=== PATIENT | female | born 1970 | race Caucasian/White ===

== ENCOUNTER 2024-05-26 09:53 | Day surgery (SDC) | payer BC, SELFPAY ==
[2024-05-23 11:49] VITALS: BMI 37.5
--- NOTE | 2024-05-26 11:28 | EXP.HP ---
History of Present Illness *Admission Date: 05/26/24 *Reason for visit:: Dysphagia *History of present illness: Mrs. Del Angel is a 53-year-old female who is here for dysphagia. The examination is deemed medically necessary for upper endoscopy. The patient has been seen, interviewed and examined prior to the procedure by both myself and the anesthesia provider. [facility] Disclaimer: The information contained in this section may have been updated after the patient was seen, as this information can be updated by other users. Medical History Rheumatoid arthritis Diabetes Amputation toe Sleep apnea History of COVID-19 History of gastroesophageal reflux (GERD) Surgical History History of ankle surgery History of appendectomy History of hysterectomy History of cholecystectomy Family History Other Cancer Colon cancer Diabetes Enlarged heart Heart disease Social History Smoking Status: Former smoker alcohol intake: never substance use type: denies use current occupational status: unemployed Travel in the last 8 weeks: None Review of Systems Review of Systems Review of systems (narrative): Negative *Cardiovascular Comments: Negative *Gastrointestinal Comments: Negative *Genitourinary Comments: Negative *Musculoskeletal Comments: Negative *Neurologic Comments: Negative Meds Home Medications and Allergies Home Medications ?Medication ?Instructions ?Recorded ?Confirmed ?Type duloxetine 60 mg capsule,delayed 60 mg PO DAILY 04/28/24 05/26/24 History release flash glucose sensor (FreeStyle #1 ea 04/28/24 05/23/24 History Benedict 2 Sensor kit) insulin glargine 100 unit/mL (3 80 unit SQ DAILY 04/28/24 05/26/24 History mL) subcutaneous pen (Lantus Solostar U-100 Insulin) insulin lispro 100 unit/mL 0 sliding scale dose SQ TID 04/28/24 05/26/24 History subcutaneous pen (Humalog KwikPen (U-100) Insulin) metformin 1,000 mg tablet 1,000 mg PO BID 04/28/24 05/26/24 History pregabalin 300 mg capsule 300 mg PO BID 04/28/24 05/26/24 History semaglutide 1 mg/dose (4 mg/3 mL) 2 mg SQ WEEKLY 04/28/24 05/26/24 History subcutaneous pen injector (Ozempic) levofloxacin 500 mg tablet 500 mg PO DAILY 05/23/24 05/26/24 History promethazine-DM 6.25 mg-15 mg/5 mL 5 ml PO DAILY PRN Cough 05/23/24 05/26/24 History oral syrup New Prescriptions to Start Prescriptions: Allergies Allergy/AdvReac Type Severity Reaction Status Date / Time hydrocodone Allergy Mild Rash Verified 05/26/24 11:41 Sulfa (Sulfonamide Allergy Mild Difficulty Verified 05/26/24 11:41 Antibiotics) Swallowing Exam Data for Last 24 hours I & O for Last 24 hours: Intake & Output 05/23/24 05/24/24 05/25/24 05/26/24 23:59 23:59 23:59 23:59 Weight 212 lb 0.015 oz *Routine HEENT Exam Head: Present normocephalic Eye: Present EOMI and PERRL ENT: Present mucous membranes moist *Routine Neck Exam Neck: Present supple *Routine Respiratory Exam Respiratory: Present CTA bilaterally *Routine Cardiovascular Exam Cardiovascular: Present RRR *Routine Abdominal Exam Abdominal: Present soft and normoactive bowel sounds; Absent tenderness *Routine Rectal Exam Rectal:: deferred *Routine Genitalia Exam Genitalia:: deferred *Routine Extremities Exam Extremities: Absent cyanosis, clubbing or edema *Routine Skin Exam Skin: Present warm; Absent rash *Routine Neurological Exam Neurological: Present alert and oriented X3 Assessment and Plan *Assessment and plan (1) Dysphagia: Status: Acute Category: Medical Code(s): R13.10 - Dysphagia, unspecified (2) Family history of stomach cancer: Status: Acute Category: Medical Code(s): Z80.0 - Family history of malignant neoplasm of digestive organs Plan A/P: 1. Dysphagia is the preprocedural diagnosis. The patient will be anesthetized/sedated using MAC sedation. The patient has been seen and examined. Cardiac and lung assessment prior to the examination is stable. Proceed with planned upper endoscopy
[2024-05-26 11:43] VITALS: BP 187/85; PULSE 102; RESP 18; TEMP 36.2; O2SAT 95
[2024-05-26] MEDS: LACTATED RINGERS 1000ML 1,000 ML 25 ML IV (11:49)
[2024-05-26 11:53] LABS: POC Glucose,Bedside 105 (70-110)
--- NOTE | 2024-05-26 12:05 | P.PNANES_ITS ---
[facility] Disclaimer: The information contained in this section may have been updated after the patient was seen, as this information can be updated by other users. Medical History Rheumatoid arthritis Diabetes Amputation toe Sleep apnea History of COVID-19 History of gastroesophageal reflux (GERD) Surgical History History of ankle surgery History of appendectomy History of hysterectomy History of cholecystectomy Family History Other Cancer Colon cancer Diabetes Enlarged heart Heart disease Social History Smoking Status: Former smoker alcohol intake: never substance use type: denies use current occupational status: unemployed Travel in the last 8 weeks: None [facility] Anesthesia Checklist Patient Identification Patient Identification: Verbal (Name & ) Structural Data Admitted From: Home Planned Operative Procedure/s: egd Consent for Planned Operative Procedure(s) Verified: Yes NPO Status Verified Time NPO: 00:00 Airway Assessment Mallampati Score:: Class II C-Spine Mobility Assessed: Yes TMJ Mobility Assessed: Yes Dentition: Edentulous Neurological Assessment Level of Consciousness: Awake, Alert and Appropriate Anesthesia Plan Anesthesia Risk discussed: Yes Anesthesia Plan: Verified ASA Class: II Anesthesia Type: MAC
[2024-05-26 12:08] VITALS: O2SAT 95
--- NOTE | 2024-05-26 12:23 | HMH.PROCNOTE ---
[facility] Procedure Note Date: 05/26/24 Time: 12:33 Procedure Note:: Upper Endoscopy Procedure Report: Esophagogastroduodenoscopy with cold biopsies and TTS balloon dilation Endoscopost: Jose Daniel Mcdonough II, MD Referring Physician: Hernán Ruiz MD Date of Procedure: May 26, 2024 Equipment: Olympus GIF 190 standard upper endoscope Sedation: MAC sedation Indications: Mrs. Del Angel is a 53-year-old female who is here for diagnostic upper endoscopy secondary to dysphagia and swallowing difficulty. This occurred after her hospitalization at [facility] 4 months ago. She was intubated en route to the hospital. The patient did have painful swallowing initially. Now she has trouble primarily with solid foods that get hung up. She will have to regurgitate food at times. She is losing some weight. She reports no heartburn or reflux. She has minor belching. She reports no bloating or abdominal pain. This is her first upper endoscopy. She is on Ozempic. Her mother had gastric cancer diagnosed in her 60s. Her grandmother was diagnosed with colon cancer. She has a nephew with Crohn's disease. Procedure: Prior to the procedure, a history and physical exam was performed, and patient's medications and allergies were reviewed. The risks, benefits and alternatives of the sedation and procedure were discussed with the patient. All questions were answered and informed consent was obtained. The patient was brought to the procedure room. Patient identification and proposed procedure were verified by the physician and the nurse. The patient was placed in a left lateral decubitus position and the scope was passed under direct vision. Throughout the procedure, the patient's blood pressure, pulse, and oxygen saturations were monitored continuously. The upper GI endoscopy was accomplished without difficulty. The patient tolerated the procedure well. Findings: The scope was passed directly into the upper esophagus and advanced to the third portion of the duodenum. The post bulbar duodenum and duodenal bulb were normal with normal mucosa and conniventes. The ampulla was normal in appearance. The scope was withdrawn through a normal bulb and pylorus into the stomach. There was some linear reactive gastropathy of the antrum. There was mild chronic gastritis of the body and fundus. Biopsies were taken from the antrum and lesser curvature to rule out H. pylori. Upon retroflexion there was a small 1 to 2 cm hiatal hernia. The scope was then withdrawn into the esophagus. There was a distal esophageal ring/Schatzki's ring. There was a serrated Z-line and biopsies were taken at the GE junction. There was no evidence of reflux esophagitis or Rowe's. There were tertiary contractions and evidence of moderate esophageal dysmotility. The entire esophagus was dilated to 60 [place]/20 mm with a TTS hydrostatic balloon. There was some shattering of the Schatzki's ring distally. The remainder of the esophageal mucosa was normal. Impression: 1. Schatzki's ring status post dilation to 20 mm 2. Nonerosive GERD with mild to moderate esophageal dysmotility and small 1 to 2 cm hiatal hernia 3. Mild linear reactive gastropathy and mild chronic gastritis Plan: I will follow-up the biopsies. The patient should have clinical improvement with dilation. I would recommend PPI/omeprazole therapy for 3 months.
[2024-05-26 12:38] VITALS: BP 167/101; PULSE 96; RESP 18; TEMP 36.9; O2SAT 96
[2024-05-26 12:48] VITALS: BP 157/82; PULSE 93; RESP 18; O2SAT 92
[2024-05-26 12:58] VITALS: BP 159/91; PULSE 92; RESP 18; O2SAT 92
[2024-05-26 13:30] VITALS: BP 158/85; PULSE 93; RESP 18; O2SAT 94
== END 2024-05-26 13:30 | disposition home or self-care (01) ==
PROVIDERS: PCP Family Medicine; Visit Provider Internal Medicine Gastroenterology
PROC: 0DJ08ZZ Inspection of Upper Intestinal Tract, Via Natural or Artificial Opening Endoscopic (ICD-10-PCS; CPT 43235; principal; 2024-05-26 12:00)
DX: R13.10 Dysphagia, unspecified (principal); Z80.0 Family history of malignant neoplasm of digestive organs; K21.9 Gastro-esophageal reflux disease without esophagitis; K22.2 Esophageal obstruction; K44.9 Diaphragmatic hernia without obstruction or gangrene; K22.4 Dyskinesia of esophagus; K31.9 Disease of stomach and duodenum, unspecified; K29.70 Gastritis, unspecified, without bleeding
CPT/HCPCS: 43239; 43249; 82962; C1726; J7120

== ENCOUNTER 2024-07-04 14:32 | Outpatient (CLI) | payer BC, SELFPAY ==
[2024-07-04 15:21] LABS: Basophils # 0.1 K/mm3 (0-0.2); Eosinophils # 0.3 K/mm3 (0.0-0.4); Eosinophils % 4.3 % (0.1-12.0); Hemoglobin 10.8 g/dL (12.2-16.2); Lymphocytes # 2.3 K/mm3 (0.7-4.5); Lymphocytes % 28.5 % (10-50); Mean Corpuscular HGB Conc 30.9 g/dL (31.8-35.4); Mean Corpuscular Hemoglobin 23.7 pg (27.0-31.2); Mean Corpuscular Volume 76.8 fl (81-99); Mean Platelet Volume 9.9 fl (7.4-10.4); Monocytes # 0.6 K/mm3 (0.1-1.0); Monocytes % 7.1 % (1.7-9.3); Neutrophils # 4.7 K/mm3 (1.8-7.8); Neutrophils % 58.8 % (37.0-80.0); Platelet Count 237 K/mm3 (142-424); Red Blood Count 4.56 M/mm3 (4.20-5.40); Red Cell Distribution Width 24.5 % (11.5-17.5); White Blood Count 7.9 K/mm3 (4.8-10.8)
[2024-07-04 15:31] LABS: Albumin Level 3.7 g/dl (3.5-5.0); Chloride 98 mmol/L (98-107); Potassium 3.4 mmoL/L (3.5-5.1); Sodium 136 mmol/L (136-145)
[2024-07-04 15:33] LABS: Ammonia 92 umol/L (9-30)
[2024-07-04 15:34] LABS: Alanine Aminotransferase 24 U/L (12-78); Albumin/Globulin Ratio 1.2 (1.1-1.8); Alkaline Phosphatase 108 U/L (38-126); Anion Gap 10.4 mEq/L (5-15); Aspartate Amino Transferase 33 U/L (14-36); Bilirubin,Total 0.8 mg/dl (0.2-1.3); Blood Urea Nitrogen 19 mg/dl (7-17); Carbon Dioxide 31 mmol/L (22.0-30.0); Estimated Glomerular Filt Rate 88 ml/min (>60); GFR (African American) 106 ML/MIN (>60); Glucose 223 mg/dl (74-100); Iron 92 ug/dL (37-170); Total Protein,Serum 6.7 g/dl (6.3-8.2)
[2024-07-04 15:36] LABS: INR 0.96 (0.9-1.1); Prothrombin Time 10.8 seconds (10.1-12.5)
[2024-07-04 15:43] LABS: Total Iron Binding Capacity 371 ug/dL (265-497)
[2024-07-04 16:09] LABS: Ferritin 37.6 ng/ml (11.1-264)
[2024-07-05 04:02] LABS: AFP, Tumor Marker 4.6 ng/mL (0.0-9.2)
[2024-07-05 05:08] LABS: Immunoglobulin A, Qn 479 mg/dL (87-352); Immunoglobulin G, Qn 1117 mg/dL (586-1602); Immunoglobulin M, Qn 199 mg/dL (26-217)
[2024-07-05 06:10] LABS: HBsAg Screen Negative (Negative); HCV Ab Non Reactive (Non Reactive); Hep A Ab, IGM Negative (Negative); Hep B Core Ab, IgM Negative (Negative)
[2024-07-05 14:33] LABS: Actin (Smooth Muscle) Antibody 5 Units (0-19); Deamidated Gliadin Abs, IgA 7 units (0-19); Deamidated Gliadin Abs, IgG 1 units (0-19); Mitochondrial (M2) Antibody <20.0 Units (0.0-20.0); Tissue Transglutaminase IgA Ab <2 U/mL (0-3); Tissue Transglutaminase IgG Ab <2 U/mL (0-5)
[2024-07-07 15:09] LABS: Liver-Kidney Microsomal Ab <1.0 Units (0.0-20.0)
[2024-07-07 16:10] LABS: Anti-Centromere B Antibodies <0.2 AI (0.0-0.9); Anti-DNA (DS) Ab Qn <1 IU/mL (0-9); Anti-Jo-1 <0.2 AI (0.0-0.9); Anti-Smith Antibody <0.2 AI (0.0-0.9); Antichromatin Antibodies <0.2 AI (0.0-0.9); Antiscleroderma-70 Antibodies <0.2 AI (0.0-0.9); RNP Antibodies <0.2 AI (0.0-0.9); Sjogren's Anti-SS-A <0.2 AI (0.0-0.9); Sjogren's Anti-SS-B <0.2 AI (0.0-0.9)
[2024-07-07 17:34] LABS: Angiotensin Converting Enzyme 55 U/L (14-82)
[2024-07-08 03:53] LABS: ALT (SGPT) P5P 15 IU/L (0-40); AST (SGOT) P5P 22 IU/L (0-40); Alpha 2-Macroglobulins, Qn 172 mg/dL (110-276); Apolipoprotein A-1 177 mg/dL (116-209); Bilirubin, Total 0.5 mg/dL (0.0-1.2); Cholesterol, Total 166 mg/dL (100-199); Fibrosis Score 0.09 (0.00-0.21); GGT 18 IU/L (0-60); Glucose 221 mg/dL (70-99); Haptoglobin 129 mg/dL (33-346); NASH Score 0.41 (0.00-0.25); Steatosis Score 0.64 (0.00-0.40); Triglycerides 173 mg/dL (0-149)
[2024-07-08 06:11] LABS: Endomysial IgA Antibody Negative (Negative)
[2024-07-09 07:09] LABS: Reticulin IgA Antibody Negative titer (Neg:<1:2.5)
== END 2024-07-04 23:59 | disposition home or self-care (01) ==
LOC: LAB 14:33
PROVIDERS: PCP Family Medicine; Visit Provider Nurse Practitioner Family
DX: K74.60 Unspecified cirrhosis of liver (principal)
CPT/HCPCS: 80053; 82103; 82104; 82105; 82140; 82164; 82728; 82784; 83516; 83540; 83550; 85025; 85610; 86225; 86235; 86255; 86256; 86376

== ENCOUNTER 2024-07-20 14:50 | Outpatient (CLI) | payer BC, SELFPAY ==
[2024-07-20 15:31] LABS: Occult Blood,Stool Positive (Negative)
[2024-07-20 15:32] LABS: Occult Blood,Stool Positive (Negative)
[2024-07-20 15:32] LABS: Occult Blood,Stool Positive (Negative)
== END 2024-07-20 23:59 | disposition home or self-care (01) ==
LOC: LAB 14:51
PROVIDERS: PCP Family Medicine; Visit Provider Nurse Practitioner Family
DX: D50.9 Iron deficiency anemia, unspecified (principal)
CPT/HCPCS: 82272; G0328

== ENCOUNTER 2024-07-30 08:26 | Day surgery (SDC) | payer BC, SELFPAY ==
[2024-07-28 14:10] VITALS: BMI 36.1
[2024-07-30 09:00] VITALS: BP 151/77; PULSE 91; RESP 16; TEMP 36.6; O2SAT 94
[2024-07-30] MEDS: LACTATED RINGERS 1000ML 1,000 ML 50 ML IV (09:00)
[2024-07-30 09:16] LABS: POC Glucose,Bedside 152 (70-110)
--- NOTE | 2024-07-30 09:39 | EXP.ANES.CKL ---
[facility] Disclaimer: The information contained in this section may have been updated after the patient was seen, as this information can be updated by other users. Medical History Rheumatoid arthritis Diabetes Amputation toe History of COVID-19 History of gastroesophageal reflux (GERD) Surgical History History of ankle surgery History of appendectomy History of hysterectomy History of cholecystectomy Family History Other Cancer Colon cancer Diabetes Enlarged heart Heart disease Social History (Updated 07/30/24 @ 08:56 by Willow Shafer RN) Smoking Status: Former smoker alcohol intake: never substance use type: denies use current occupational status: unemployed Travel in the last 8 weeks: None caffeine: Yes Have you lived/traveled outside [place] in past 30 days?: No Contact w/someone who lives/traveled outside US past 30 days?: No Exposure to someone with infectious disease in past 14 days?: No Do you have a fever (greater than 100.4 F or 38 C)?: No Have you tested positive for COVID-19: No Exposed to someone with COVID-19 in past 14 days?: No Do you have a sore throat?: No Do you have a cough?: No Do you have any weakness?: No Are you experiencing any nausea/vomitting?: No Do you have any diarrhea?: No Are you experiencing any unusual bleeding?: No Do you have any muscle aches/pain?: No Do you have any abdominal pain?: No Are you experiencing loss of taste or smell?: No [facility] Anesthesia Checklist Patient Identification Patient Identification: Arm Band Structural Data Admitted From: Home Planned Operative Procedure/s: EGD/Colonoscopy Consent for Planned Operative Procedure(s) Verified: Yes Verified Documents: Surgical Consent and History and Physical NPO Status Verified Time NPO: 00:00 Additional verifications Anesthesia Reactions: No Airway Assessment Mallampati Score:: Class II C-Spine Mobility Assessed: Yes TMJ Mobility Assessed: Yes Dentition: Edentulous Neurological Assessment Level of Consciousness: Awake, Alert and Appropriate Anesthesia Plan Anesthesia Risk discussed: Yes Anesthesia Plan: Verified ASA Class: III Anesthesia Type: MAC
--- NOTE | 2024-07-30 10:38 | P.HP_ITS ---
History of Present Illness *Admission Date: 07/30/24 *Reason for visit:: Dysphagia and iron deficiency anemia and cirrhosis *History of present illness: Mrs. Del Angel is a 53-year-old female with iron deficiency anemia, dysphagia and cirrhosis who is here for diagnostic upper endoscopy and colonoscopy. The examination is deemed medically necessary for EGD and colonoscopy. The patient has been seen, interviewed and examined prior to the procedure by both myself and the anesthesia provider. [facility] Disclaimer: The information contained in this section may have been updated after the patient was seen, as this information can be updated by other users. Medical History Rheumatoid arthritis Diabetes Amputation toe History of COVID-19 History of gastroesophageal reflux (GERD) Surgical History History of ankle surgery History of appendectomy History of hysterectomy History of cholecystectomy Family History Other Cancer Colon cancer Diabetes Enlarged heart Heart disease Social History (Updated 07/30/24 @ 08:56 by Willow Shafer RN) Smoking Status: Former smoker alcohol intake: never substance use type: denies use current occupational status: unemployed Travel in the last 8 weeks: None caffeine: Yes Have you lived/traveled outside [place] in past 30 days?: No Contact w/someone who lives/traveled outside [place] past 30 days?: No Exposure to someone with infectious disease in past 14 days?: No Do you have a fever (greater than 100.4 F or 38 C)?: No Have you tested positive for COVID-19: No Exposed to someone with COVID-19 in past 14 days?: No Do you have a sore throat?: No Do you have a cough?: No Do you have any weakness?: No Are you experiencing any nausea/vomitting?: No Do you have any diarrhea?: No Are you experiencing any unusual bleeding?: No Do you have any muscle aches/pain?: No Do you have any abdominal pain?: No Are you experiencing loss of taste or smell?: No Review of Systems Review of Systems Review of systems (narrative): Negative *Cardiovascular Comments: Negative *Gastrointestinal Comments: Negative *Genitourinary Comments: Negative *Musculoskeletal Comments: Negative *Neurologic Comments: Negative Meds Home Medications and Allergies Home Medications ?Medication ?Instructions ?Recorded ?Confirmed ?Type flash glucose sensor (FreeStyle #1 ea 04/28/24 07/01/24 History Benedict 2 Sensor kit) insulin glargine 100 unit/mL (3 80 unit SQ DAILY 04/28/24 07/30/24 History mL) subcutaneous pen (Lantus Solostar U-100 Insulin) insulin lispro 100 unit/mL 0 sliding scale dose SQ TID 04/28/24 07/30/24 History subcutaneous pen (Humalog KwikPen (U-100) Insulin) metformin 1,000 mg tablet 1,000 mg PO BID 04/28/24 07/30/24 History pregabalin 300 mg capsule 300 mg PO BID 04/28/24 07/30/24 History omeprazole 40 mg capsule,delayed 40 mg PO DAILY #30 caps 05/26/24 07/30/24 Rx release duloxetine 60 mg capsule,delayed 60 mg PO BID 07/01/24 07/30/24 History release (Cymbalta) ferrous sulfate 325 mg (65 mg 325 mg PO DAILY 07/01/24 07/30/24 History iron) tablet furosemide 40 mg tablet 40 mg PO DAILY 07/01/24 07/30/24 History losartan 25 mg tablet 25 mg PO DAILY 07/01/24 07/30/24 History ondansetron 8 mg disintegrating 8 mg PO Q8H nausea and vomiting 07/01/24 07/01/24 Rx tablet #12 tabs semaglutide 2 mg/dose (8 mg/3 mL) 2 mg SQ QWEEK 07/01/24 07/30/24 History subcutaneous pen injector (Ozempic) New Prescriptions to Start Prescriptions: Allergies Allergy/AdvReac Type Severity Reaction Status Date / Time hydrocodone Allergy Mild Rash Verified 07/30/24 08:57 Sulfa (Sulfonamide Allergy Mild Difficulty Verified 07/30/24 08:57 Antibiotics) Swallowing Exam Data for Last 24 hours Vital signs and Labs for Last 24 Hours: Temp Pulse Resp BP Pulse Ox O2 Del Method 97.8 F 91 H 16 151/77 H 94 L Room Air 07/30/24 09:00 07/30/24 09:00 07/30/24 09:00 07/30/24 09:00 07/30/24 09:00 07/30/24 09:00 Laboratory Results - last 24 hr 07/30/24 09:07: POC Glucose 152 H I & O for Last 24 hours: Intake & Output 07/27/24 07/28/24 07/29/24 07/30/24 23:59 23:59 23:59 23:59 Weight 204 lb *Routine HEENT Exam Head: Present normocephalic Eye: Present EOMI and PERRL ENT: Present mucous membranes moist *Routine Neck Exam Neck: Present supple *Routine Respiratory Exam Respiratory: Present CTA bilaterally *Routine Cardiovascular Exam Cardiovascular: Present RRR *Routine Abdominal Exam Abdominal: Present soft and normoactive bowel sounds; Absent tenderness *Routine Rectal Exam Rectal:: deferred *Routine Genitalia Exam Genitalia:: deferred *Routine Extremities Exam Extremities: Absent cyanosis, clubbing or edema *Routine Skin Exam Skin: Present warm; Absent rash *Routine Neurological Exam Neurological: Present alert and oriented X3 Assessment and Plan *Assessment and plan (1) Dysphagia: Status: Acute Category: Medical Code(s): R13.10 - Dysphagia, unspecified (2) GERD (gastroesophageal reflux disease): Status: Acute Category: Medical Code(s): K21.9 - Gastro-esophageal reflux disease without esophagitis (3) Family history of stomach cancer: Status: Acute Category: Medical Code(s): Z80.0 - Family history of malignant neoplasm of digestive organs (4) Schatzki's ring: Status: Acute Category: Medical Code(s): K22.2 - Esophageal obstruction (5) Iron deficiency anemia: Status: Acute Category: Medical Code(s): D50.9 - Iron deficiency anemia, unspecified (6) Cirrhosis of liver: Status: Acute Category: Medical Code(s): K74.60 - Unspecified cirrhosis of liver Plan A/P: 1. Dysphagia with history of cirrhosis and iron deficiency anemia is the preprocedural diagnosis. EGD to rule out portal hypertension and colonoscopy for diagnostic evaluation of iron deficiency. The patient will be anesthetized/sedated using MAC sedation. The patient has been seen and examined. Cardiac and lung assessment prior to the examination is stable. Proceed with planned upper endoscopy and colonoscopy
[2024-07-30 10:44] VITALS: O2SAT 99
--- NOTE | 2024-07-30 10:51 | P.PCN_ITS ---
[facility] Procedure Note Date: 07/30/24 Time: 11:01 Procedure Note:: Upper Endoscopy Procedure Report: Esophagogastroduodenoscopy with APC ablation and cold biopsies Endoscopost: oJse Daniel Mcdonough II, MD Referring Physician: Hernán Ruiz MD Date of Procedure: July 30, 2024 Equipment: Olympus GIF 190 standard upper endoscope Sedation: MAC sedation Indications: Mrs. Del Angel is a 53-year-old female with iron deficiency anemia. Her hemoglobin was 8.8 in January 2024 and has dropped to 6.9 in 4 months. Her CAT scan has shown cirrhosis with evidence of portal hypertension and varices in the upper abdomen. The patient has received 3 units of PRBCs and an iron infusion. The patient reports no abdominal pain, melena, hematochezia or bright red blood per rectum. She is not on any anticoagulation and rarely uses NSAIDs. She did have an EGD with me in May 2024 and had dilation of a Schatzki's ring. Her dysphagia is resolved. Procedure: Prior to the procedure, a history and physical exam was performed, and patient's medications and allergies were reviewed. The risks, benefits and alternatives of the sedation and procedure were discussed with the patient. All questions were answered and informed consent was obtained. The patient was brought to the procedure room. Patient identification and proposed procedure were verified by the physician and the nurse. The patient was placed in a left lateral decubitus position and the scope was passed under direct vision. Throughout the procedure, the patient's blood pressure, pulse, and oxygen saturations were monitored continuously. The upper GI endoscopy was accomplished without difficulty. The patient tolerated the procedure well. Findings: The scope was passed directly into the upper esophagus and advanced to the third portion of the duodenum. There were 3 duodenal angiodysplasia/AVMs identified and all were ablated/coagulated using APC ablation. The remainder of the post bulbar duodenum and duodenal bulb were normal with normal mucosa and conniventes. The scope was withdrawn through a normal duodenal bulb and pylorus into the stomach. There was bile gastropathy in the antrum. There was also an angiodysplasia/AVM in the body of the stomach with some minor oozing and coffee- ground heme. This was also ablated/coagulated using APC. There was evidence of proximal gastric atrophy/atrophic gastritis and biopsies were taken from the fundus. Upon retroflexion there was a very small sliding hiatal hernia. There were no gastric or fundic varices. There was no evidence of portal gastropathy or GAVE. The scope was then withdrawn into the esophagus. There was an insignificant Schatzki's ring distally. There were no esophageal varices. The remainder of the esophageal mucosa was normal. Impression: 1. Gastric and duodenal AVMs/angiodysplasia status post APC ablation 2. Proximal gastric atrophy/atrophic gastritis 3. Antral reactive gastropathy Plan: There was clearly no evidence of portal hypertension, portal gastropathy or varices. I do feel that her chronic GI blood loss is from the angiodysplasias. I will discuss with patient and family and follow-up the biopsies. Chronic atrophic gastritis is associated with iron deficiency as well.
--- NOTE | 2024-07-30 11:05 | P.PCN_ITS ---
[facility] Procedure Note Date: 07/30/24 Time: 11:20 Procedure Note:: Colonoscopy Procedure Report: Colonoscopy with cold snare polypectomy Endoscopist: Jose Daniel Mcdonough II, MD Referring physician: Hernán Ruiz MD Date of Procedure: July 30, 2024 Equipment: Olympus 190 variable stiffness pediatric colonoscope Sedation: MAC sedation Indication: Mrs. Del Angel is a 53-year-old female with iron deficiency anemia. Her hemoglobin was 8.8 in January 2024 and has dropped to 6.9 in 4 months. Her CAT scan has shown cirrhosis with evidence of portal hypertension and varices in the upper abdomen. The patient has received 3 units of PRBCs and an iron infusion. The patient reports no abdominal pain, melena, hematochezia or bright red blood per rectum. She is not on any anticoagulation and rarely uses NSAIDs. The patient reports no abdominal pain or weight loss. Her grandmother was diag nosed with colon cancer in her 70s. The patient's last colonoscopy was 5 years ago in [place] ([facility]). Procedure: Prior to the procedure, a history and physical exam was performed, and patient's medications and allergies were reviewed. The risks, benefits and alternatives of the sedation and procedure were discussed with the patient. All questions were answered and informed consent was obtained. The patient was brought to the procedure room. Patient identification and proposed procedure were verified by the physician and the nurse. The patient was placed in a left lateral decubitus position and the scope was passed under direct vision. Throughout the procedure, the patient's blood pressure, pulse, and oxygen saturations were monitored continuously. The colonoscopy was accomplished without difficulty. The patient tolerated the procedure well. Findings: On digital rectal examination there was normal rectal tone. There were no external hemorrhoids. The colonoscope was introduced through the anal canal to the rectum and advanced to the cecum. The ileocecal valve and appendiceal orifice were identified. The scope was advanced a short distance into the ileum which appeared grossly normal. The scope was then withdrawn into the colon. There were 3 polyps (cecum x 1 (5 mm), transverse x 1 (5 mm) and descending x 1 (9 to 10 mm)). These were all removed via cold snare polypectomy. The cecum, ascending, transverse, descending, sigmoid and rectum were grossly normal. There were no mucosal abnormalities identified. Upon retroflexion within the rectum there were grade 1-2 internal hemorrhoids.The preparation was good throughout with [place] Preparation Score of 8 out of 9. The cecal time was 14 minutes. Impression: 1. Colonic polyps x 3 (ranging in size from 5 to 10 mm) Plan: There was no source for iron deficiency or chronic GI blood loss from the upper digestive tract. 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 I will follow-up the polyp histology and recommend repeat surveillance colonoscopy again in 5 years. Angiodysplasias which are also called AVMs (arteriovenous malformations) can remain clinically silent or cause gastrointestinal bleeding. Patients who bleed typically present with occult not overt gastrointestinal blood loss. Angiodysplasias are aberrant blood vessels which are more frequently found in the gastrointestinal tract, where they are probably more common than anywhere else in the body. The vast majority are acquired later in life. The reasons for the distortion of vascular structures observed as we get older are poorly understood. Angiodysplasias are composed of ectatic, dilated, thin-walled blood vessels and the most prominent feature in angiodysplasias is the presence of dilated, tortuous submucosal veins. A proposed theory is that angiodysplasias develop due to intermittent, recurrent low-grade obstruction of submucosal veins. Over years, the obstruction results in dilatation and tortuosity of the draining areas (ie, submucosal vessels, venules, and superficial capillaries). Angiodysplasia may be found during evaluation of gastrointestinal (GI) bleeding or it may be discovered incidentally during an endoscopic evaluation being performed for other reasons. If bleeding occurs, the bleeding tends be recurrent and chronic. However, marked acute bleeding causing orthostasis or hypotension can rarely occur. Angiodysplasia of the stomach or duodenum has been incriminated as the cause of blood loss in 4 to 7 percent of patients with gastrointestinal bleeding . Such patients may present with either occult bleeding or overt bleeding. In addition, angiodysplasia may be detected as an incidental finding. I recommend treating angiodysplasia found during upper endoscopy or colonoscopy in patients with occult bleeding, even if the lesions are not bleeding at the time of the endoscopy. If needed, patients should also be started on iron replacement therapy. A variety of endoscopic treatments can be used to treat angiodysplasia, with approaches employing cautery being the most widely used. Argon plasma coagulation (APC) uses high frequency energy transmitted to tissue by ionized gas. This technique has been used for a variety of bleeding lesions, including angiodysplasia. APC is safe and is the most common and most successful method used to treat angiodysplasia.
[2024-07-30 11:24] VITALS: BP 138/86; PULSE 93; RESP 16; TEMP 36.1; O2SAT 94
[2024-07-30 11:34] VITALS: BP 119/81; PULSE 84; RESP 16; O2SAT 100
[2024-07-30 11:44] VITALS: BP 138/83; PULSE 85; RESP 16; O2SAT 92
[2024-07-30 11:54] VITALS: BP 143/84; PULSE 82; RESP 16; O2SAT 93
== END 2024-07-30 12:16 | disposition home or self-care (01) ==
PROVIDERS: PCP Family Medicine; Visit Provider Internal Medicine Gastroenterology
PROC: 0DJ08ZZ Inspection of Upper Intestinal Tract, Via Natural or Artificial Opening Endoscopic (ICD-10-PCS; CPT 45378; principal; 2024-07-30 10:00)
DX: R13.10 Dysphagia, unspecified (principal); K21.9 Gastro-esophageal reflux disease without esophagitis; Z80.0 Family history of malignant neoplasm of digestive organs; K22.2 Esophageal obstruction; D50.9 Iron deficiency anemia, unspecified; K74.60 Unspecified cirrhosis of liver; K44.9 Diaphragmatic hernia without obstruction or gangrene; K31.819 Angiodysplasia of stomach and duodenum without bleeding; K31.9 Disease of stomach and duodenum, unspecified; K29.40 Chronic atrophic gastritis without bleeding; K63.5 Polyp of colon; K64.8 Other hemorrhoids; E11.9 Type 2 diabetes mellitus without complications; Z79.4 Long term (current) use of insulin; Z79.85 Long-term (current) use of injectable non-insulin antidiabetic drugs
CPT/HCPCS: 43239; 43270; 45385; 82962; C2618; J7120

== ENCOUNTER 2024-08-06 07:28 | Outpatient (CLI) | payer BC, SELFPAY ==
[2024-08-06] VITALS (14 sets, daily range): BP systolic 128–188; BP diastolic 61–167; PULSE 78–86; RESP 18; TEMP 36.9; O2SAT 92–98; BMI 37.0
[2024-08-06 08:09] LABS: POC Glucose,Bedside 85 (70-110)
[2024-08-06 08:35] LABS: INR 0.94 (0.9-1.1); Prothrombin Time 10.4 seconds (9.2-12.1)
[2024-08-06 08:41] LABS: Basophils # 0.1 K/mm3 (0-0.2); Basophils % 0.8 % (0.1-2.0); Eosinophils # 0.3 K/mm3 (0.0-0.4); Eosinophils % 3.6 % (0.1-12.0); Hematocrit 34.5 % (37.0-47.0); Lymphocytes # 3.1 K/mm3 (0.7-4.5); Lymphocytes % 34.6 % (10-50); Mean Corpuscular HGB Conc 31.9 g/dL (31.8-35.4); Mean Corpuscular Hemoglobin 25.9 pg (27.0-31.2); Mean Corpuscular Volume 81.4 fl (81-99); Monocytes # 0.6 K/mm3 (0.1-1.0); Monocytes % 6.9 % (1.7-9.3); Neutrophils # 4.8 K/mm3 (1.8-7.8); Neutrophils % 53.8 % (37.0-80.0); Platelet Count 193 K/mm3 (142-424); Red Blood Count 4.24 M/mm3 (4.20-5.40); Red Cell Distribution Width 22.9 % (11.5-17.5); White Blood Count 8.9 K/mm3 (4.8-10.8)
--- NOTE | 2024-08-06 09:15 | CT_ITS ---
FINAL REPORT CLINICAL HISTORY: cirrhosis on imaging, normal LFTs LIVER BIOPSY, FINDINGS: CT guided liver biopsy. HISTORY: Cirrhosis. Attending radiologist: Dr. Smith. Physician Miter Grinder Operator: Fabian Upton PA-C PROCEDURE: After informed consent was obtained and a time-out was performed, the patient was prepped and draped in usual sterile fashion over the liver. Utilizing local anesthesia and sterile technique with a 18-gauge core system, access to liver was obtained under direct CT guidance. A total of 2 separate 18-gauge core biopsies were obtained under direct CT guidance. Post biopsy films demonstrate no evidence of acute complication. The patient received moderate conscious sedation. The patient tolerated procedure well and left the department in good condition. PROCEDURAL SEDATION: 2 mg of IV Versed and 50 mcg of Fentanyl were administered. Continuous vital sign monitoring was used. An RN was present during the sedation process. Overall sedation time was 15 minutes. IMPRESSION: Status post CT guided biopsy of liver without immediate complication. Films reviewed, interpreted and dictated by Dr. Smith. Transcribed by Fabian Upton PA-C. Reviewed, Interpreted and Dictated by Carlton Smith MD Transcribed by YAN Bardales Authenticated and [facility]
[2024-08-06] MEDS: OXYCODONE 5MG W/APAP 325MG TABLET 1 EACH PO (09:45)
== END 2024-08-06 12:45 | disposition home or self-care (01) ==
PROVIDERS: PCP Family Medicine; Visit Provider Nurse Practitioner Family
DX: K74.60 Unspecified cirrhosis of liver (principal)
CPT/HCPCS: 47000; 77012; 82962; 85025; 85610; J2250; J3010

== ENCOUNTER 2024-08-17 08:22 | Emergency (ER) | payer BC, SELFPAY ==
[2024-08-17 08:23] VITALS: BP 194/101; PULSE 90; RESP 18; TEMP 36.7; O2SAT 97; BMI 35.7
[2024-08-17 08:29] VITALS: BP 194/101; PULSE 90; O2SAT 95
[2024-08-17 09:00] VITALS: BP 170/106; PULSE 89; O2SAT 94
--- NOTE | 2024-08-17 09:04 | ED_ITS ---
Discharge Plan Disposition Patient Disposition: Home, Self-Care Prescriptions Prescriptions: No Action metformin 1,000 mg tablet 1,000 mg PO BID Patient Comments: TAKE 1 TABLET BY MOUTH TWICE A DAY WITH MEALS pregabalin [Lyrica] 300 mg capsule 300 mg PO BID Patient Comments: TAKE 1 CAPSULE BY MOUTH TWICE A DAY (DME) FreeStyle Benedict 2 Sensor Kit See Rx Instructions .ROUTE .MEDSUPPLY Qty: 1 Patient Comments: USE DIRECTED AND CHANGE EVERY 14 DAYS Rx Instructions: As directed insulin glargine [Lantus Solostar U-100 Insulin] 100 unit/mL (3 mL) insulin pen 50 unit SQ DAILY Patient Comments: INJECT 80 UNITS UNDER THE SKIN DIRECTED EVERY EVENING . MAX 100 UNITS/DAY insulin lispro [Humalog KwikPen Insulin] 100 unit/mL insulin pen 0 sliding scale dose SQ TID Patient Comments: INJECT 20 UNITS UNDER THE SKIN DIRECTED 3 TIMES A DAY . MAX 100 UNITS/DAY Rx Instructions: DOSE PER SLIDING SCALE ferrous sulfate 325 mg (65 mg iron) tablet 325 mg PO DAILY Patient Comments: TAKE 1 TABLET BY MOUTH EVERY DAY WITH BREAKFAST Rx Instructions: TAKE 1 TABLET BY MOUTH EVERY DAY WITH BREAKFAST Ozempic 2 mg/dose (8 mg/3 mL) pen injector 4 mg SQ QWEEK Patient Comments: INJECT 2 MG UNDER THE SKIN INTO THE APPROPRIATE AREA DIRECTED ONCE WEEKLY (TOO SOON ON INS) Rx Instructions: INJECT 2 MG UNDER THE SKIN INTO THE APPROPRIATE AREA DIRECTED ONCE WEEKLY (TOO SOON ON INS) furosemide 40 mg tablet 40 mg PO DAILY PRN (Reason: Edema) Patient Comments: TAKE 1 TABLET BY MOUTH DAILY NEEDED (SHORTNESS OF BREATH, WEIGHT GAIN). Rx Instructions: TAKE 1 TABLET BY MOUTH DAILY NEEDED (SHORTNESS OF BREATH, WEIGHT GAIN). losartan 25 mg tablet 50 mg PO DAILY Patient Comments: TAKE 1 TABLET BY MOUTH EVERY DAY Rx Instructions: TAKE 1 TABLET BY MOUTH EVERY DAY omeprazole 40 mg capsule,delayed release(DR/EC) 40 mg PO DAILY Qty: 30 3RF Rx Instructions: Please take 1 capsule p.o. daily Referrals Follow up/Referrals: Hernán Ruiz [Primary Care Provider] - See instructions Activity Restrictions/Add. Instructions Additional Instructions/Restrictions: No evidence of an acute neurovascular emergency. Please keep a blood pressure log as discussed return with any sudden worsening of your headaches or neurologic complaints or other concerns. After your blood pressure log is taken for several days please follow-up with your primary care doctor to discuss chronic management to your blood pressure. As discussed according to the [employer] most recent blood pressure guidelines for patients over the age of 50 our goal blood pressure of 150/90. Clinical Impressions Clinical Impression: Headache, Hypertension Print Language Print Language: [place] Discharge ED Provider: Marty Cabrera General Adult HPI General Chief complaint: Headache Stated complaint: headache, high bp Time Seen by Provider: 08/17/24 08:49 Mode of Arrival: Ambulatory Source of Information: Patient Limitations: No Limitations Description of Symptoms (Recalled from ER Triage Doc. by RN): pt reports headache for two days. has taken tylenol. History of Present Illness HPI narrative: Patient is a 53-year-old female presenting today with a headache. Has been slowly and progressively worsening over the last several days no sudden component to this. She has no neurologic symptoms associated with this no numbness weakness tingling changes in vision or coordination that are acute. No changes in mental status her is at the bedside who agrees with that. Patient denies any fevers or neck stiffness. Patient has attributed significant hypertension to this and recent took her blood pressure was 200 systolic at home. She is on blood pressure medications. Past medical history includes hypertension diabetes and rheumatoid arthritis. She has not recently been on steroids etc. Related Data Home Medications ?Medication ?Instructions ?Recorded ?Confirmed flash glucose sensor (FreeStyle #1 ea 04/28/24 08/17/24 Benedict 2 Sensor kit) insulin glargine 100 unit/mL (3 50 unit SQ DAILY 04/28/24 08/17/24 mL) subcutaneous pen (Lantus Solostar U-100 Insulin) insulin lispro 100 unit/mL 0 sliding scale dose SQ TID 04/28/24 08/17/24 subcutaneous pen (Humalog KwikPen (U-100) Insulin) metformin 1,000 mg tablet 1,000 mg PO BID 04/28/24 08/17/24 pregabalin 300 mg capsule (Lyrica) 300 mg PO BID 04/28/24 08/17/24 ferrous sulfate 325 mg (65 mg 325 mg PO DAILY 07/01/24 08/17/24 iron) tablet furosemide 40 mg tablet 40 mg PO DAILY PRN Edema 07/01/24 08/17/24 losartan 25 mg tablet 50 mg PO DAILY 07/01/24 08/17/24 semaglutide 2 mg/dose (8 mg/3 mL) 4 mg SQ QWEEK 07/01/24 08/17/24 subcutaneous pen injector (Ozempic) Previous Rx's ?Medication ?Instructions ?Recorded omeprazole 40 mg capsule,delayed 40 mg PO DAILY #30 caps 05/26/24 release Allergies Allergy/AdvReac Type Severity Reaction Status Date / Time hydrocodone Allergy Mild Rash Verified 08/06/24 07:49 Sulfa (Sulfonamide Allergy Mild Difficulty Verified 08/06/24 07:49 Antibiotics) [facility] Disclaimer: The information contained in this section may have been updated after the patient was seen, as this information can be updated by other users. Medical History (Updated 08/17/24 @ 09:06 by Marty Cabrera MD) Rheumatoid arthritis Diabetes Amputation toe History of COVID-19 History of gastroesophageal reflux (GERD) Surgical History History of ankle surgery History of appendectomy History of hysterectomy History of cholecystectomy Family History Other Cancer Colon cancer Diabetes Enlarged heart Heart disease Social History Smoking Status: Current every day smoker alcohol intake: never substance use type: denies use current occupational status: unemployed Travel in the last 8 weeks: None caffeine: Yes Have you lived/traveled outside [place] in past 30 days?: No Contact w/someone who lives/traveled outside US past 30 days?: No Exposure to someone with infectious disease in past 14 days?: No Do you have a fever (greater than 100.4 F or 38 C)?: No Have you tested positive for COVID-19: No Exposed to someone with COVID-19 in past 14 days?: No Do you have a sore throat?: No Do you have a cough?: No Do you have any weakness?: No Do you have any diarrhea?: No Are you experiencing any unusual bleeding?: No Do you have any muscle aches/pain?: No Do you have any abdominal pain?: No Are you experiencing loss of taste or smell?: No Other Medical History Have you received the Flu Vaccine for this season: No Have you received the Pneumonia Vaccine: No ROS Obtained: Yes All systems reviewed & no additional complaints except as documented Physical Exam General General appearance: alert Respiratory Respiratory exam: Present normal lung sounds bilaterally Cardiovascular Cardiovascular exam: Present regular rate Neurological Exam Neurological exam: Present alert, oriented X3, CN II-XII intact and normal gait; Absent motor sensory deficit Medical Decision Making Medical Records Screening: Per USPSTF and CDC recommendations, given the prevalence of disease in our region, it is our hospital?s policy to screen for HIV and viral Hepatitis for all patients aged 18 and over and those with ongoing risk factors. Marcus Inquiry Pt receiving controlled substance: No Vital Signs: 08/17/24 08:23 08/17/24 08:29 08/17/24 09:00 Temperature 98.1 F Temperature Source Oral Pulse Rate 90 89 Pulse Rate [Right] 90 Respiratory Rate 18 Blood Pressure 194/101 H 170/106 H Blood Pressure [Right Arm] 194/101 H Blood Pressure Mean [Right Arm] 132 02 Sat by Pulse Oximetry 97 95 94 L Oxygen Delivery Method Room Air Room Air Room Air 08/17/24 09:30 Temperature Temperature Source Pulse Rate 83 Pulse Rate [Right] Respiratory Rate Blood Pressure 182/103 H Blood Pressure [Right Arm] Blood Pressure Mean [Right Arm] 02 Sat by Pulse Oximetry 96 Oxygen Delivery Method Room Air Lab Data Lab Results 08/17/24 08:44: HIV Ag/Ab Combo Qual Negative Orders (Tests/Meds): ED MEDICATIONS Generic Name Dose Route Start Last Admin Trade Name Freq PRN Reason Stop Dose Admin Lactated Ringer's 1,000 mls @ 999 mls/hr 08/17/24 09:15 08/17/24 09:29 Lactated Ringer's 1000 Ml Bag IV 08/17/24 10:15 999 mls/hr .Q1H1M NELLA Administration Discontinued Medications Generic Name Dose Route Start Last Admin Trade Name Freq PRN Reason Stop Dose Admin Diphenhydramine HCl 25 mg 08/17/24 09:01 08/17/24 09:30 Diphenhydramine 50mg/Ml Vial IV 08/17/24 09:02 25 mg ONCE ONE Administration Ketorolac Tromethamine 15 mg 08/17/24 09:01 08/17/24 09:30 Ketorolac 30mg/Ml Vial IV 08/17/24 09:02 15 mg ONCE ONE Administration Prochlorperazine Edisylate 10 mg 08/17/24 09:01 08/17/24 09:30 Prochlorperazine 10mg/2ml Vial IV 08/17/24 09:02 10 mg ONCE ONE Administration ORDERS Category Date Time Status HIV Combo Stat Lab 08/17/24 08:44 Completed Medical Decision Narrative: Well-appearing 53-year-old female with a GCS of 15 and nonfocal normal neurologic exam with some hypertension presents today with a headache that has been ongoing for 2 days and slowly worsening. This is not consistent with a subarachnoid hemorrhage or meningitis. Patient has no focal neurologic deficits no indication currently for any CT imaging or MRI imaging. Will treat her headache with a migraine cocktail and reassess. She has no evidence of clinical endorgan damage from hypertension standpoint as well. I suspect that her blood pressure will spontaneously resolve once we get her headache under control. Reassessment 1007 patient feeling much better GCS of 15 normal neurologic exam. Blood pressure has mildly improved. Again no evidence clinically of endorgan damage. She will follow-up with her primary care doctor and keep a blood pressure log. Patient was discharged in stable and improved condition. Critical Care Critical Care Time Critical Care Time: No
[2024-08-17] MEDS: LACTATED RINGERS 1000ML 1,000 ML 999 ML IV (09:29)
[2024-08-17 09:30] VITALS: BP 182/103; PULSE 83; O2SAT 96
[2024-08-17] MEDS: diphenhydrAMINE 50MG/ML VIAL 25 MG IV (09:30)
[2024-08-17] MEDS: KETOROLAC 30MG/ML VIAL 15 MG IV (09:30)
[2024-08-17] MEDS: PROCHLORPERAZINE 10MG/2ML VIAL 10 MG IV (09:30)
[2024-08-17 09:54] LABS: HIV Combo NEGATIVE (Negative)
[2024-08-17 10:00] VITALS: BP 187/99; O2SAT 94
[2024-08-17 10:17] VITALS: BP 187/99; PULSE 83; RESP 19; TEMP 36.7
== END 2024-08-17 10:18 | disposition home or self-care (01) ==
PROVIDERS: Emergency Provider Student in an Organized Health Care Education/Training Program; PCP Family Medicine
DX: R51.9 Headache, unspecified (principal); I10 Essential (primary) hypertension; Z72.0 Tobacco use
CPT/HCPCS: 87389; 96361; 96374; 96375; 99283; J0780; J1200; J1885; J7120

== ENCOUNTER 2024-09-03 10:52 | Observation (INO) | payer BC, SELFPAY ==
[2024-09-03] VITALS (36 sets, daily range): BP systolic 125–197; BP diastolic 77–104; PULSE 80–104; RESP 11–18; TEMP 36.7–37.1; O2SAT 91–97; BMI 35.6; BMI 38.7
--- NOTE | 2024-09-03 11:52 | ED_ITS ---
<Statement entered by Gopi Kee MD - 09/04/24 09:16> I was consulted by the IVET, and we discussed the complexity of the problems being addressed. I approved the treatment and management plan for this patient's care in the emergency department, thus performing a substantive portion of the medical decision making. Gopi Kee MD Discharge Plan Disposition Patient Disposition: Admitted Condition: Serious Clinical Impressions Clinical Impression: Hypertensive emergency, Hypomagnesemia, Elevated brain natriuretic peptide (BNP) level, Hyperglycemia due to type 2 diabetes mellitus, Elevated troponin I level Discharge ED Provider: Gopi Kee General Adult HPI <YAN Ac - Last Filed: 09/03/24 21:52> General Chief complaint: Headache Stated complaint: BP 222/175 headache Time Seen by Provider: 09/03/24 11:52 Mode of Arrival: Wheelchair Source of Information: Patient Description of Symptoms (Recalled from ER Triage Doc. by RN): patient states she has had a bad headache for one week, she reports she has high blood pressure and has been having meds changed recently. she also has a red rash on her right arm and right cheek that does not itch. she reports she did take her BP meds today. History of Present Illness HPI narrative: Patient presents for evaluation of headache and high blood pressure. Patient reports that she has had a frontal headache for approximately a week and for the last 3 days her blood pressure has been significantly elevated with a systolic blood pressure greater than 200. She contacted her PCP who sent her to the emergency department for evaluation. Patient denies any focal neurologic deficits denies any fever chills hemoptysis hematochezia melena cough shortness of breath nausea vomiting or diarrhea. She does have multiple medical comorbidities including hypertension cirrhosis iron deficiency anemia GERD insulin-dependent type 2 diabetes mellitus. Patient reports that she has been compliant with her medications. Related Data Home Medications ?Medication ?Instructions ?Recorded ?Confirmed flash glucose sensor (FreeStyle #1 ea 04/28/24 09/03/24 Benedict 2 Sensor kit) insulin glargine 100 unit/mL (3 70 unit SQ DAILY 04/28/24 09/03/24 mL) subcutaneous pen (Lantus Solostar U-100 Insulin) insulin lispro 100 unit/mL 0 sliding scale dose SQ TID 04/28/24 09/03/24 subcutaneous pen (Humalog KwikPen (U-100) Insulin) metformin 1,000 mg tablet 1,000 mg PO BID 04/28/24 09/03/24 pregabalin 300 mg capsule (Lyrica) 300 mg PO BID 04/28/24 09/03/24 ferrous sulfate 325 mg (65 mg 325 mg PO DAILY 07/01/24 09/03/24 iron) tablet furosemide 40 mg tablet 40 mg PO DAILY PRN Edema 07/01/24 09/03/24 losartan 25 mg tablet 50 mg PO DAILY 07/01/24 09/03/24 semaglutide 2 mg/dose (8 mg/3 mL) 4 mg SQ QWEEK 07/01/24 09/03/24 subcutaneous pen injector (Ozempic) clonidine HCl 0.1 mg tablet 0.1 mg PO BIDP PRN htn 09/03/24 09/03/24 Previous Rx's ?Medication ?Instructions ?Recorded omeprazole 40 mg capsule,delayed 40 mg PO DAILY #30 caps 05/26/24 release Allergies Allergy/AdvReac Type Severity Reaction Status Date / Time hydrocodone Allergy Mild Rash Verified 09/03/24 15:09 Sulfa (Sulfonamide Allergy Mild Difficulty Verified 09/03/24 15:09 Antibiotics) Swallowing [facility] <YAN Ac - Last Filed: 09/03/24 21:52> PFS Disclaimer: The information contained in this section may have been updated after the patient was seen, as this information can be updated by other users. Medical History History of fibromyalgia History of hypertension Rheumatoid arthritis Diabetes Amputation toe History of COVID-19 History of gastroesophageal reflux (GERD) Surgical History History of esophagogastroduodenoscopy (EGD) History of colonoscopy History of amputation of toe History of ankle surgery History of appendectomy History of hysterectomy History of cholecystectomy Family History Other Cancer Colon cancer Diabetes Enlarged heart Heart disease Social History Smoking Status: Current every day smoker alcohol intake: never substance use type: denies use current occupational status: unemployed Travel in the last 8 weeks: None caffeine: Yes Have you lived/traveled outside [place] in past 30 days?: No Contact w/someone who lives/traveled outside US past 30 days?: No Exposure to someone with infectious disease in past 14 days?: No Do you have a fever (greater than 100.4 F or 38 C)?: No Have you tested positive for COVID-19: No Exposed to someone with COVID-19 in past 14 days?: No Do you have a sore throat?: No Do you have a cough?: No Do you have any weakness?: No Do you have any diarrhea?: No Are you experiencing any unusual bleeding?: No Do you have any muscle aches/pain?: No Do you have any abdominal pain?: No Are you experiencing loss of taste or smell?: No Other Medical History Have you received the Flu Vaccine for this season: No Have you received the Pneumonia Vaccine: No <YAN Ac - Last Filed: 09/03/24 21:52> ROS Obtained: Yes Systems reviewed as appropriate & no additional complaints except as documented Physical Exam <YAN Ac - Last Filed: 09/03/24 21:52> General General appearance: alert and in no apparent distress Respiratory Respiratory exam: Present normal lung sounds bilaterally Cardiovascular Cardiovascular exam: Present regular rate Abdominal Exam Abdominal exam: Absent normal bowel sounds Neurological Exam Neurological exam: Present alert, oriented X3, CN II-XII intact and normal gait; Absent motor sensory deficit Medical Decision Making <YAN Ac - Last Filed: 09/03/24 21:52> Medical Records Medical records reviewed: Yes I reviewed the patient's medical records. Screening: Per USPSTF and CDC recommendations, given the prevalence of disease in our region, it is our hospital?s policy to screen for HIV and viral Hepatitis for all patients aged 18 and over and those with ongoing risk factors. Marcus Inquiry Pt receiving controlled substance: No Vital Signs: 09/03/24 11:19 09/03/24 11:19 09/03/24 11:31 Temperature 98.5 F Temperature Source Oral Pulse Rate 97 H 97 H Pulse Rate [Right] 102 H Respiratory Rate 18 Blood Pressure 187/103 H 178/96 H Blood Pressure [Right Arm] 187/103 H Blood Pressure Mean Blood Pressure Mean [Right Arm] 131 Blood Pressure Source Blood Pressure Source [Right Arm] Automatic Cuff Blood Pressure Position 02 Sat by Pulse Oximetry 96 95 97 Oxygen Delivery Method Room Air Room Air Room Air 09/03/24 11:45 09/03/24 12:00 09/03/24 12:16 Temperature Temperature Source Pulse Rate 94 H 97 H 100 H Pulse Rate [Right] Respiratory Rate Blood Pressure 171/84 H 186/101 H 154/104 H Blood Pressure [Right Arm] Blood Pressure Mean Blood Pressure Mean [Right Arm] Blood Pressure Source Blood Pressure Source [Right Arm] Blood Pressure Position 02 Sat by Pulse Oximetry 93 L 96 94 L Oxygen Delivery Method Room Air Room Air Room Air 09/03/24 12:31 09/03/24 13:00 09/03/24 13:12 Temperature Temperature Source Pulse Rate 100 H 92 H 98 H Pulse Rate [Right] Respiratory Rate Blood Pressure 183/93 H 193/96 H 159/87 H Blood Pressure [Right Arm] Blood Pressure Mean 113 Blood Pressure Mean [Right Arm] Blood Pressure Source Blood Pressure Source [Right Arm] Blood Pressure Position 02 Sat by Pulse Oximetry 94 L 94 L 95 Oxygen Delivery Method Room Air Room Air Room Air 09/03/24 13:46 09/03/24 13:56 09/03/24 14:20 Temperature 98.4 F Temperature Source Oral Pulse Rate 95 H Pulse Rate [Right] Respiratory Rate 14 16 16 Blood Pressure 185/99 H 174/97 H 174/97 H Blood Pressure [Right Arm] Blood Pressure Mean Blood Pressure Mean [Right Arm] Blood Pressure Source Automatic Cuff Blood Pressure Source [Right Arm] Blood Pressure Position Supine 02 Sat by Pulse Oximetry Oxygen Delivery Method Room Air Lab Data Lab results reviewed: Yes I reviewed the patient's lab results. Lab Results 09/03/24 11:25: WBC 8.3, RBC 3.98 L, Hgb 10.6 L, Hct 33.6 L, MCV 84.4, MCH 26.6 L, MCHC 31.5 L, RDW 16.9, Plt Count 207, MPV 9.6, Neut % (Auto) 63.1, Lymph % (Auto) 21.5, Liberty % (Auto) 7.2, Eos % (Auto) 6.8, Baso % (Auto) 0.8, Neut # (Auto) 5.2, Lymph # (Auto) 1.8, Liberty # (Auto) 0.6, Eos # (Auto) 0.6 H, Baso # (Auto) 0.1, PT 10.3, INR 0.91, Sodium 134 L, Potassium 3.6, Chloride 98, Carbon Dioxide 30, Anion Gap 9.6, BUN 15, Creatinine 0.70, Estimated Creat Clear 134, Estimated GFR 88, Est GFR ( Amer) 106, Glucose 371 H, Hemoglobin A1c 6.8 H, Calcium 9.1, Magnesium 1.3 L, Total Bilirubin 0.4, AST 31, ALT 28, Alkaline Phosphatase 179 H, Troponin I 0.04 H, NT-Pro-B Natriuret Pep 322 H, Total Protein 6.4, Albumin 3.5, Globulin 2.9, Albumin/Globulin Ratio 1.2, TSH 1.25, F ree T4 Index 2.2 L, Thyroxine (T4) 8.1, T3 Uptake 27 09/03/24 12:12: SARS-CoV-2 (PCR) Not detected, Influenza A Untype (PCR) Not detected, Influenza Type B (PCR) Not detected 09/03/24 11:25 09/03/24 11:25 Orders (Tests/Meds): ED MEDICATIONS Generic Name Dose Route Start Last Admin Trade Name Freq PRN Reason Stop Dose Admin Acetaminophen 650 mg 09/03/24 13:31 Acetaminophen 325mg Tab PO 10/03/24 13:30 Q4HP PRN Fever or Mild Pain (1-3) Carvedilol 6.25 mg 09/03/24 21:00 09/03/24 20:25 Carvedilol 6.25mg Tablet PO 10/03/24 20:59 6.25 mg BID NELLA Administration Enoxaparin Sodium 40 mg 09/04/24 09:00 Enoxaparin 40mg/0.4ml Syringe SUBCUT 10/04/24 08:59 DAILY NELLA Furosemide 40 mg 09/03/24 16:00 09/03/24 15:50 Furosemide 40mg/4ml Vial IV 10/03/24 15:59 40 mg BIDL NELLA Administration Magnesium Sulfate 2 gm in 50 mls @ 50 mls/hr 09/03/24 19:08 09/03/24 20:27 Magnesium Sulfate 2gm/50ml Premix IV 09/03/24 20:07 50 mls/hr ONCE ONE Administration Insulin Glargine 50 unit 09/04/24 09:00 Insulin Glargine 100 Units/Ml 3ml Flexpen SUBCUT 10/04/24 08:59 DAILY NELLA Insulin Human Lispro 0 unit 09/03/24 16:30 09/03/24 20:28 Humalog 100 Units/Ml 10ml Vial (Ssi) SUBCUT 10/03/24 16:29 20 unit ACHS NELLA Administration Protocol Irbesartan 150 mg 09/03/24 15:30 09/03/24 15:50 Irbesartan 150mg Tab PO 10/03/24 15:29 150 mg DAILY NELLA Administration Non-Formulary Medication 1,000 mg 09/03/24 21:00 09/03/24 21:11 Metformin PO 10/03/24 20:59 1,000 mg BID NELLA Administration Non-Formulary Medication 300 mg 09/03/24 21:00 09/03/24 20:34 Pregabalin [Lyrica] PO 10/03/24 20:59 300 mg BID NELLA Administration Pantoprazole Sodium 40 mg 09/03/24 21:00 09/03/24 20:26 Pantoprazole 40mg Tablet PO 10/03/24 20:59 40 mg HS NELLA Administration Spironolactone 25 mg 09/03/24 15:30 09/03/24 15:50 Spironolactone 25mg Tablet PO 10/03/24 15:29 25 mg DAILY NELLA Administration Discontinued Medications Generic Name Dose Route Start Last Admin Trade Name Freq PRN Reason Stop Dose Admin Aspirin 324 mg 09/03/24 13:20 09/03/24 13:39 Aspirin 81mg Chewable Tablet PO 09/03/24 13:21 324 mg ONCE ONE Administration Dexamethasone Sodium Phosphate 10 mg 09/03/24 12:00 09/03/24 12:20 Dexamethasone 4mg/Ml 5ml Mdv IV 09/03/24 12:01 10 mg ONCE ONE Administration Diphenhydramine HCl 50 mg 09/03/24 12:00 09/03/24 12:20 Diphenhydramine 50mg/Ml Vial IV 09/03/24 12:01 50 mg ONCE ONE Administration Magnesium Sulfate 2 gm in 50 mls @ 50 mls/hr 09/03/24 13:12 09/03/24 13:36 Magnesium Sulfate 2gm/50ml Premix IV 09/03/24 14:11 50 mls/hr ONCE ONE Administration Nicardipine HCl 25 mg/ Sodium 250 mls @ 50 mls/hr 09/03/24 13:20 09/03/24 15:55 Chloride IV 10/03/24 13:19 0 mg/hr .Q5H NELLA 0 mls/hr Infusion Protocol 5 MG/HR Insulin Human Regular 5 unit 09/03/24 13:12 09/03/24 13:39 Insulin Human Regular 100 Units/Ml 10ml Vial IVP 09/03/24 13:13 5 unit ONCE ONE Administration Iopamidol 80 ml 09/03/24 12:58 09/03/24 12:59 Iopamidol-370 (76%);100ml Bottle IV 09/03/24 12:59 80 ml ONCE ONE Administration Methocarbamol 500 mg 09/03/24 12:00 09/03/24 12:20 Methocarbamol 500mg Tablet PO 09/03/24 12:01 500 mg ONCE ONE Administration Prochlorperazine Edisylate 5 mg 09/03/24 12:00 09/03/24 12:20 Prochlorperazine 10mg/2ml Vial IV 09/03/24 12:01 5 mg ONCE ONE Administration Sodium Chloride 40 ml 09/03/24 12:58 09/03/24 12:59 0.9 % Sodium Chloride 50 Ml Vial IV 09/03/24 12:59 40 ml ONCE ONE Administration Sodium Chloride 10 ml 09/03/24 12:58 09/03/24 12:59 Sodium Chloride 0.9% 10ml Syr (Rad Only) IV 09/03/24 12:59 10 ml ONCE ONE Administration ORDERS Category Date Time Status CT angio head Stat Cat Scan 09/03/24 12:[address] angio neck Stat Cat Scan 09/03/24 12:[address] head/brain wo con Stat Cat Scan 09/03/24 12:01 Completed Cardiology Consult [Consult to Cardiology] [CONS] Cons 09/03/24 13:31 Active Routine BNP [NT Pro Brain Natriuretic Pep.] Stat Lab 09/03/24 11:25 Completed CBC w/Auto Diff [Complete Blood Count Auto Diff] Stat Lab 09/03/24 11:25 Completed CMP [Comprehensive Metabolic Panel] Stat Lab 09/03/24 11:25 Completed Complete Blood Count Auto Diff AMLAB Lab 09/04/24 06:00 Ordered Comprehensive Metabolic Panel AMLAB Lab 09/04/24 06:00 Ordered Hemoglobin A1C Stat Lab 09/03/24 11:25 Completed INR [Prothrombin Time INR] Stat Lab 09/03/24 11:25 Completed Magnesium AMLAB Lab 09/04/24 06:00 Ordered Magnesium Stat Lab 09/03/24 11:25 Completed Rapid PCR Covid and Flu A/B Stat Lab 09/03/24 12:12 Completed Thyroid Panel Stat Lab 09/03/24 11:25 Completed Trop I [Troponin I] Stat Lab 09/03/24 11:25 Completed Troponin I Q3H Lab 09/03/24 15:28 Completed Troponin I Q3H Lab 09/03/24 18:25 Completed HEART Score History (anamnesis): Slightly suspicious ECG: Normal Age: 45-65 years Risk factors: 3 or more risk factors Troponin: 1-3x normal limit HEART Score: 4 Medical Decision Narrative: In summary patient is a 54-year-old female who presents to the emergency department for evaluation of headache and high blood pressure. Patient is actually hypertensive with a blood pressure 187/103 heart rate is 97 with normal sinus rhythm on the bedside monitor breathing 18 times a minute satting at 96% on room air with a temperature of 98.5 upon arrival. Physical exam is remarkable for a Sidney Coma Score 15 patient is awake alert and oriented to person place and circumstance. Cranial nerves II through XII are intact grossly to exam. Patient has no nuchal rigidity or meningeal signs. C-spine is nontender. Breath sounds are currently equal bilaterally to the bases without adventitious sounds. Abdomen soft nontender no rebound no guarding no rigidity. Patient has no dependent edema noted.. Differential diagnosis includes stroke versus hypertensive emergency versus ACS versus electrolyte abnormality versus DKA versus infection etc. Initial workup will be conducted with hematologic labs twelve-lead EKG plain film chest x-ray CTA of the head and neck CT of the head without contrast. Initial interventions include slight bolus headache cocktail. Initial workup reviewed by me shows that her white count is 8.3 hemoglobin hematocrit 10.6 and 33.6 respectively with no absolute neutrophil count INR is 0.91 initial glucose is 371 gap is 9.6 initial troponin is 0.04 NT proBNP is 322 and COVID and flu are not detected. Given evidence of endorgan damage patient was started on a Cardene drip as her blood pressures continue to remain high approaching 200 systolic. I did give the patient 5 units IV push of insulin for her hyperglycemia. My informal interpretation of her imaging shows no acute stenosis or intracranial abnormality nor any acute intrathoracic processes and or infiltrates prior to radiology read. I then had an interactive discussion with hospital medicine regarding patient BASS findings and management and she will be admitted for further evaluation and care. <Gopi Kee MD - Last Filed: 09/03/24 13:30> Vital Signs: 09/03/24 11:19 09/03/24 11:19 09/03/24 11:31 Temperature 98.5 F Temperature Source Oral Pulse Rate 97 H 97 H Pulse Rate [Right] 102 H Respiratory Rate 18 Blood Pressure 187/103 H 178/96 H Blood Pressure [Right Arm] 187/103 H Blood Pressure Mean Blood Pressure Mean [Right Arm] 131 Blood Pressure Source Blood Pressure Source [Right Arm] Automatic Cuff Blood Pressure Position 02 Sat by Pulse Oximetry 96 95 97 Oxygen Delivery Method Room Air Room Air Room Air 09/03/24 11:45 09/03/24 12:00 09/03/24 12:16 Temperature Temperature Source Pulse Rate 94 H 97 H 100 H Pulse Rate [Right] Respiratory Rate Blood Pressure 171/84 H 186/101 H 154/104 H Blood Pressure [Right Arm] Blood Pressure Mean Blood Pressure Mean [Right Arm] Blood Pressure Source Blood Pressure Source [Right Arm] Blood Pressure Position 02 Sat by Pulse Oximetry 93 L 96 94 L Oxygen Delivery Method Room Air Room Air Room Air 09/03/24 12:31 09/03/24 13:00 09/03/24 13:12 Temperature Temperature Source Pulse Rate 100 H 92 H 98 H Pulse Rate [Right] Respiratory Rate Blood Pressure 183/93 H 193/96 H 159/87 H Blood Pressure [Right Arm] Blood Pressure Mean 113 Blood Pressure Mean [Right Arm] Blood Pressure Source Blood Pressure Source [Right Arm] Blood Pressure Position 02 Sat by Pulse Oximetry 94 L 94 L 95 Oxygen Delivery Method Room Air Room Air Room Air 09/03/24 13:46 09/03/24 13:56 09/03/24 14:20 Temperature 98.4 F Temperature Source Oral Pulse Rate 95 H Pulse Rate [Right] Respiratory Rate 14 16 16 Blood Pressure 185/99 H 174/97 H 174/97 H Blood Pressure [Right Arm] Blood Pressure Mean Blood Pressure Mean [Right Arm] Blood Pressure Source Automatic Cuff Blood Pressure Source [Right Arm] Blood Pressure Position Supine 02 Sat by Pulse Oximetry Oxygen Delivery Method Room Air Lab Data Lab Results 09/03/24 11:25: WBC 8.3, RBC 3.98 L, Hgb 10.6 L, Hct 33.6 L, MCV 84.4, MCH 26.6 L, MCHC 31.5 L, RDW 16.9, Plt Count 207, MPV 9.6, Neut % (Auto) 63.1, Lymph % (Auto) 21.5, Liberty % (Auto) 7.2, Eos % (Auto) 6.8, Baso % (Auto) 0.8, Neut # (Auto) 5.2, Lymph # (Auto) 1.8, Liberty # (Auto) 0.6, Eos # (Auto) 0.6 H, Baso # (Auto) 0.1, PT 10.3, INR 0.91, Sodium 134 L, Potassium 3.6, Chloride 98, Carbon Dioxide 30, Anion Gap 9.6, BUN 15, Creatinine 0.70, Estimated Creat Clear 134, Estimated GFR 88, Est GFR ( Amer) 106, Glucose 371 H, Hemoglobin A1c 6.8 H, Calcium 9.1, Magnesium 1.3 L, Total Bilirubin 0.4, AST 31, ALT 28, Alkaline Phosphatase 179 H, Troponin I 0.04 H, NT-Pro-B Natriuret Pep 322 H, Total Protein 6.4, Albumin 3.5, Globulin 2.9, Albumin/Globulin Ratio 1.2, TSH 1.25, F ree T4 Index 2.2 L, Thyroxine (T4) 8.1, T3 Uptake 27 09/03/24 12:12: SARS-CoV-2 (PCR) Not detected, Influenza A Untype (PCR) Not detected, Influenza Type B (PCR) Not detected Orders (Tests/Meds): ED MEDICATIONS Generic Name Dose Route Start Last Admin Trade Name Freq PRN Reason Stop Dose Admin Acetaminophen 650 mg 09/03/24 13:31 Acetaminophen 325mg Tab PO 10/03/24 13:30 Q4HP PRN Fever or Mild Pain (1-3) Carvedilol 6.25 mg 09/03/24 21:00 09/03/24 20:25 Carvedilol 6.25mg Tablet PO 10/03/24 20:59 6.25 mg BID NELLA Administration Enoxaparin Sodium 40 mg 09/04/24 09:00 Enoxaparin 40mg/0.4ml Syringe SUBCUT 10/04/24 08:59 DAILY NELLA Furosemide 40 mg 09/03/24 16:00 09/03/24 15:50 Furosemide 40mg/4ml Vial IV 10/03/24 15:59 40 mg BIDL NELLA Administration Magnesium Sulfate 2 gm in 50 mls @ 50 mls/hr 09/03/24 19:08 09/03/24 20:27 Magnesium Sulfate 2gm/50ml Premix IV 09/03/24 20:07 50 mls/hr ONCE ONE Administration Insulin Glargine 50 unit 09/04/24 09:00 Insulin Glargine 100 Units/Ml 3ml Flexpen SUBCUT 10/04/24 08:59 DAILY NELLA Insulin Human Lispro 0 unit 09/03/24 16:30 09/03/24 20:28 Humalog 100 Units/Ml 10ml Vial (Ssi) SUBCUT 10/03/24 16:29 20 unit ACHS NELLA Administration Protocol Irbesartan 150 mg 09/03/24 15:30 09/03/24 15:50 Irbesartan 150mg Tab PO 10/03/24 15:29 150 mg DAILY NELLA Administration Non-Formulary Medication 1,000 mg 09/03/24 21:00 09/03/24 21:11 Metformin PO 10/03/24 20:59 1,000 mg BID NELLA Administration Non-Formulary Medication 300 mg 09/03/24 21:00 09/03/24 20:34 Pregabalin [Lyrica] PO 10/03/24 20:59 300 mg BID NELLA Administration Pantoprazole Sodium 40 mg 09/03/24 21:00 09/03/24 20:26 Pantoprazole 40mg Tablet PO 10/03/24 20:59 40 mg HS NELLA Administration Spironolactone 25 mg 09/03/24 15:30 09/03/24 15:50 Spironolactone 25mg Tablet PO 10/03/24 15:29 25 mg DAILY NELLA Administration Discontinued Medications Generic Name Dose Route Start Last Admin Trade Name Freq PRN Reason Stop Dose Admin Aspirin 324 mg 09/03/24 13:20 09/03/24 13:39 Aspirin 81mg Chewable Tablet PO 09/03/24 13:21 324 mg ONCE ONE Administration Dexamethasone Sodium Phosphate 10 mg 09/03/24 12:00 09/03/24 12:20 Dexamethasone 4mg/Ml 5ml Mdv IV 09/03/24 12:01 10 mg ONCE ONE Administration Diphenhydramine HCl 50 mg 09/03/24 12:00 09/03/24 12:20 Diphenhydramine 50mg/Ml Vial IV 09/03/24 12:01 50 mg ONCE ONE Administration Magnesium Sulfate 2 gm in 50 mls @ 50 mls/hr 09/03/24 13:12 09/03/24 13:36 Magnesium Sulfate 2gm/50ml Premix IV 09/03/24 14:11 50 mls/hr ONCE ONE Administration Nicardipine HCl 25 mg/ Sodium 250 mls @ 50 mls/hr 09/03/24 13:20 09/03/24 15:55 Chloride IV 10/03/24 13:19 0 mg/hr .Q5H NELLA 0 mls/hr Infusion Protocol 5 MG/HR Insulin Human Regular 5 unit 09/03/24 13:12 09/03/24 13:39 Insulin Human Regular 100 Units/Ml 10ml Vial IVP 09/03/24 13:13 5 unit ONCE ONE Administration Iopamidol 80 ml 09/03/24 12:58 09/03/24 12:59 Iopamidol-370 (76%);100ml Bottle IV 09/03/24 12:59 80 ml ONCE ONE Administration Methocarbamol 500 mg 09/03/24 12:00 09/03/24 12:20 Methocarbamol 500mg Tablet PO 09/03/24 12:01 500 mg ONCE ONE Administration Prochlorperazine Edisylate 5 mg 09/03/24 12:00 09/03/24 12:20 Prochlorperazine 10mg/2ml Vial IV 09/03/24 12:01 5 mg ONCE ONE Administration Sodium Chloride 40 ml 09/03/24 12:58 09/03/24 12:59 0.9 % Sodium Chloride 50 Ml Vial IV 09/03/24 12:59 40 ml ONCE ONE Administration Sodium Chloride 10 ml 09/03/24 12:58 09/03/24 12:59 Sodium Chloride 0.9% 10ml Syr (Rad Only) IV 09/03/24 12:59 10 ml ONCE ONE Administration ORDERS Category Date Time Status CT angio head Stat Cat Scan 09/03/24 12:[address] angio neck Stat Cat Scan 09/03/24 12:[address] head/brain wo con Stat Cat Scan 09/03/24 12:01 Completed Cardiology Consult [Consult to Cardiology] [CONS] Cons 09/03/24 13:31 Active Routine BNP [NT Pro Brain Natriuretic Pep.] Stat Lab 09/03/24 11:25 Completed CBC w/Auto Diff [Complete Blood Count Auto Diff] Stat Lab 09/03/24 11:25 Completed CMP [Comprehensive Metabolic Panel] Stat Lab 09/03/24 11:25 Completed Complete Blood Count Auto Diff AMLAB Lab 09/04/24 06:00 Ordered Comprehensive Metabolic Panel AMLAB Lab 09/04/24 06:00 Ordered Hemoglobin A1C Stat Lab 09/03/24 11:25 Completed INR [Prothrombin Time INR] Stat Lab 09/03/24 11:25 Completed Magnesium AMLAB Lab 09/04/24 06:00 Ordered Magnesium Stat Lab 09/03/24 11:25 Completed Rapid PCR Covid and Flu A/B Stat Lab 09/03/24 12:12 Completed Thyroid Panel Stat Lab 09/03/24 11:25 Completed Trop I [Troponin I] Stat Lab 09/03/24 11:25 Completed Troponin I Q3H Lab 09/03/24 15:28 Completed Troponin I Q3H Lab 09/03/24 18:25 Completed ECG Data Tracing #1: Independently interpreted by me rate is 93, rhythm is regular, axis is not borderline leftward deviated, no ST elevation in anatomical contiguous leads, QTc 466. Critical Care <YAN Ac - Last Filed: 09/03/24 21:52> Critical Care Time Critical Care Time: Yes Attestation: On 09/03/24, the high probability of a clinically significant, sudden or life threatening deterioration of the following system(s) required my full and direct attention, intervention and personal management. The time I documented below is in addition to time spent performing reported procedures but includes the following listed in this critical care notation. Total Time Total Critical Care Time: 35
--- NOTE | 2024-09-03 12:00 | CT_ITS ---
FINAL REPORT TECHNIQUE: Multiple axial CT angiography images were performed from the foramen magnum to the vertex before and during IV contrast administration. This study was performed with techniques to keep radiation doses as low as reasonably achievable (ALARA). Individualized dose reduction techniques using automated exposure control or adjustment of mA and/or kV according to the patient's size were employed. CLINICAL HISTORY: Intractable headache FINDINGS: CTA HEAD: The major intracranial arterial system is patent without hemodynamically significant stenosis or major vessel occlusion.No aneurysm is identified. IMPRESSION: No acute intracranial hemorrhage or large acute cortical infarct. No evidence of vascular injury, aneurysm, hemodynamically significant stenosis or major vessel occlusion of the intracranial arterial system. Reviewed, Interpreted and Dictated by Agustin Levy MD Transcribed by Elza Lemon Authenticated and . [facility]
--- NOTE | 2024-09-03 12:00 | CT_ITS ---
FINAL REPORT CLINICAL HISTORY: Intractable headache FINDINGS: CT NECK ANGIO, WITHOUT AND WITH CONTRAST TECHNIQUE: Thin section axial CT with contrast with multiplanar 3D MIP reconstruction. This study was performed with techniques to keep radiation doses as low as reasonably achievable, (ALARA). Individualized dose reduction techniques using automated exposure control or adjustment of mA and/or kV according to the patient''s size were employed. NASCET criteria and technique was utilized during interpretation. FINDINGS: Aortic arch: Arch shows no significant narrowing. Great vessel origins are widely patent. There is mild calcified plaque at the carotid bifurcations. Right carotid: No significant stenosis is seen of the cervical common or internal carotid artery. Left carotid: No significant stenosis is seen of the cervical common or internal carotid artery. Vertebrals: Left vertebral artery is dominant. No significant stenosis is present. IMPRESSION: No significant stenosis of the cervical carotid arteries This study was performed using automated techniques to achieve radiation exposure as low as reasonably Reviewed, Interpreted and Dictated by Agustin Levy MD Transcribed by Elza Lemon Authenticated and [facility]
--- NOTE | 2024-09-03 12:01 | CT_ITS ---
FINAL REPORT TECHNIQUE: Noncontrast exam This study was performed with techniques to keep radiation doses as low as reasonably achievable, (ALARA). Individualized dose reduction techniques using automated exposure control or adjustment of mA and/or kV according to the patient''s size were employed. CLINICAL HISTORY: Intractable headache hypertension FINDINGS: No abnormal density is seen. Ventricles are normal. There is no hemorrhage. No mass effect is seen. Bone windows show no evidence of fracture. IMPRESSION: No acute findings Reviewed, Interpreted and Dictated by Agustin Levy MD Transcribed by Elza Lemon Authenticated and . [facility]
[2024-09-03 12:09] LABS: Basophils # 0.1 K/mm3 (0-0.2); Basophils % 0.8 % (0.1-2.0); Eosinophils # 0.6 K/mm3 (0.0-0.4); Eosinophils % 6.8 % (0.1-12.0); Hematocrit 33.6 % (37.0-47.0); Hemoglobin 10.6 g/dL (12.2-16.2); Lymphocytes # 1.8 K/mm3 (0.7-4.5); Lymphocytes % 21.5 % (10-50); Mean Corpuscular HGB Conc 31.5 g/dL (31.8-35.4); Mean Corpuscular Hemoglobin 26.6 pg (27.0-31.2); Mean Corpuscular Volume 84.4 fl (81-99); Mean Platelet Volume 9.6 fl (7.4-10.4); Monocytes # 0.6 K/mm3 (0.1-1.0); Monocytes % 7.2 % (1.7-9.3); Neutrophils # 5.2 K/mm3 (1.8-7.8); Neutrophils % 63.1 % (37.0-80.0); Platelet Count 207 K/mm3 (142-424); Red Blood Count 3.98 M/mm3 (4.20-5.40); Red Cell Distribution Width 16.9 % (11.5-17.5); White Blood Count 8.3 K/mm3 (4.8-10.8)
[2024-09-03 12:18] LABS: INR 0.91 (0.9-1.1); Prothrombin Time 10.3 seconds (10.1-12.5)
[2024-09-03] MEDS: diphenhydrAMINE 50MG/ML VIAL 50 MG IV (12:20)
[2024-09-03] MEDS: PROCHLORPERAZINE 10MG/2ML VIAL 5 MG IV (12:20)
[2024-09-03] MEDS: DEXAMETHASONE 4MG/ML 5ML MDV 10 MG IV (12:20)
[2024-09-03] MEDS: METHOCARBAMOL 500MG TABLET 500 MG PO (12:20)
[2024-09-03 12:25] LABS: Coronavirus 19, PCR Not Detected (NotDetected); Influenza A, PCR Not Detected (NotDetected); Influenza B, PCR Not Detected (NotDetected)
[2024-09-03 12:29] LABS: Albumin Level 3.5 g/dl (3.5-5.0); Chloride 98 mmol/L (98-107); Potassium 3.6 mmoL/L (3.5-5.1); Sodium 134 mmol/L (136-145)
[2024-09-03 12:31] LABS: Blood Urea Nitrogen 15 mg/dl (7-17); Creatinine Clearance Estimated 134 mL/min (50-200); Estimated Glomerular Filt Rate 88 ml/min (>60); GFR (African American) 106 ML/MIN (>60)
[2024-09-03 12:32] LABS: Alanine Aminotransferase 28 U/L (12-78); Albumin/Globulin Ratio 1.2 (1.1-1.8); Alkaline Phosphatase 179 U/L (38-126); Anion Gap 9.6 mEq/L (5-15); Aspartate Amino Transferase 31 U/L (14-36); Bilirubin,Total 0.4 mg/dl (0.2-1.3); Calcium 9.1 mg/dl (8.4-10.2); Carbon Dioxide 30 mmol/L (22.0-30.0); Globulin 2.9 g/dL (1.3-3.2); Glucose 371 mg/dl (74-100); Magnesium 1.3 mg/dl (1.6-2.3); Total Protein,Serum 6.4 g/dl (6.3-8.2)
[2024-09-03 12:40] LABS: NT Pro Brain Natriuretic Pep. 322 pg/mL (0-125)
[2024-09-03 12:42] LABS: Troponin I 0.04 ng/ml (0.00-0.034)
[2024-09-03] MEDS: 0.9 % SODIUM CHLORIDE 50 ML VIAL 40 ML IV (12:59)
[2024-09-03] MEDS: IOPAMIDOL-370 (76%);100ML BOTTLE 80 ML IV (12:59)
[2024-09-03] MEDS: SODIUM CHLORIDE 0.9% 10ML SYR (RAD ONLY) 10 ML IV (12:59)
--- NOTE | 2024-09-03 13:23 | ECG_ITS ---
APPROVED REPORT Exam: Resting ECG HR:93 bpm ECG Measurements Heart Rate 93 AXES OR 156 P 67 QRSd 85 QRS -19 QT 416 T 41 QTc 466 Conclusion SINUS RHYTHM WITH OCCASIONAL SUPRAVENTRICULAR PREMATURE COMPLEXES VOLTAGE CRITERIA FOR LVH [MEETS CRITERIA IN ONE OF: R(aVL), S(V1), R(V5), R(V5/V6)+S(V1)] NONSPECIFIC T-WAVE ABNORMALITY ABNORMAL ECG UNCONFIRMED REPORT Electronically signed by : ZAYDA CHIN, 09/04/2024 06:56:20
--- NOTE | 2024-09-03 13:34 | P.HP_ITS ---
History of Present Illness *Admission Date: 09/03/24 *Reason for visit:: Headache, severe hypertension *History of present illness: Ms. Del Angel is a 54-year-old female with type 2 diabetes and obesity who presents to the ER with complaint of headache for the past week. States that headaches been getting worse. Was started on metoprolol and Fioricet but had side effects to these and they made her ill so she discontinued them. Has noted to have worsening blood pressure. Recently started on losartan and clonidine, last dose of clonidine was yesterday. Presentation to the ER found to have severely elevated blood pressure with systolics above 200. Workup with labs showed elevation of troponin at 0.04. Had no ischemic changes on EKG. Given the severity of her hypertension, concern for hypertensive emergency. Patient initiated on nicardipine drip and medicine was consulted for further management. She denies any chest pain, pressure, nausea or vomiting. Has been fatigued lately but not sleeping well at night. Denies fever, cough, shortness of breath. at bedside helps supplement history. On arrival to the floor, patient is stable on room air. She is afebrile. Systolic is 170-190. Alert and oriented x 4. Found to have peripheral edema and crackles on exam Reports her diabetes is well-controlled using her Dexcom. Glucose runs in the green . Also states she is recently been diagnosed with cirrhosis. Denies alcohol consumption, tobacco use, or drug use. Does vape occasionally. [facility] Disclaimer: The information contained in this section may have been updated after the patient was seen, as this information can be updated by other users. Medical History History of fibromyalgia History of hypertension Rheumatoid arthritis Diabetes Amputation toe History of COVID-19 History of gastroesophageal reflux (GERD) Surgical History History of esophagogastroduodenoscopy (EGD) History of colonoscopy History of amputation of toe History of ankle surgery History of appendectomy History of hysterectomy History of cholecystectomy Family History Other Cancer Colon cancer Diabetes Enlarged heart Heart disease Social History Smoking Status: Current every day smoker alcohol intake: never substance use type: denies use current occupational status: unemployed Travel in the last 8 weeks: None caffeine: Yes Have you lived/traveled outside [place] in past 30 days?: No Contact w/someone who lives/traveled outside [place] past 30 days?: No Exposure to someone with infectious disease in past 14 days?: No Do you have a fever (greater than 100.4 F or 38 C)?: No Have you tested positive for COVID-19: No Exposed to someone with COVID-19 in past 14 days?: No Do you have a sore throat?: No Do you have a cough?: No Do you have any weakness?: No Do you have any diarrhea?: No Are you experiencing any unusual bleeding?: No Do you have any muscle aches/pain?: No Do you have any abdominal pain?: No Are you experiencing loss of taste or smell?: No Other Medical History Have you received the Flu Vaccine for this season: No Have you received the Pneumonia Vaccine: No Review of Systems Review of Systems Review of systems (narrative): 14 point review of systems performed, pertinent positives and negatives as per HPI Meds Home Medications and Allergies Home Medications ?Medication ?Instructions ?Recorded ?Confirmed ?Type flash glucose sensor (FreeStyle #1 ea 04/28/24 09/03/24 History Benedict 2 Sensor kit) insulin glargine 100 unit/mL (3 70 unit SQ DAILY 04/28/24 09/03/24 History mL) subcutaneous pen (Lantus Solostar U-100 Insulin) insulin lispro 100 unit/mL 0 sliding scale dose SQ TID 04/28/24 09/03/24 History subcutaneous pen (Humalog KwikPen (U-100) Insulin) metformin 1,000 mg tablet 1,000 mg PO BID 04/28/24 09/03/24 History pregabalin 300 mg capsule (Lyrica) 300 mg PO BID 04/28/24 09/03/24 History omeprazole 40 mg capsule,delayed 40 mg PO DAILY #30 caps 05/26/24 09/03/24 Rx release ferrous sulfate 325 mg (65 mg 325 mg PO DAILY 07/01/24 09/03/24 History iron) tablet furosemide 40 mg tablet 40 mg PO DAILY PRN Edema 07/01/24 09/03/24 History losartan 25 mg tablet 50 mg PO DAILY 07/01/24 09/03/24 History semaglutide 2 mg/dose (8 mg/3 mL) 4 mg SQ QWEEK 07/01/24 09/03/24 History subcutaneous pen injector (Ozempic) clonidine HCl 0.1 mg tablet 0.1 mg PO BIDP PRN htn 09/03/24 09/03/24 History New Prescriptions to Start Prescriptions: Allergies Allergy/AdvReac Type Severity Reaction Status Date / Time hydrocodone Allergy Mild Rash Verified 09/03/24 15:09 Sulfa (Sulfonamide Allergy Mild Difficulty Verified 09/03/24 15:09 Antibiotics) Swallowing Exam Data for Last 24 hours Vital signs and Labs for Last 24 Hours: Temp Pulse Resp BP Pulse Ox O2 Del Method 98.5 F 92 H 18 193/96 H 94 L Room Air 09/03/24 11:19 09/03/24 13:00 09/03/24 11:19 09/03/24 13:00 09/03/24 13:00 09/03/24 13:00 Laboratory Results - last 24 hr 09/03/24 11:25: WBC 8.3, RBC 3.98 L, Hgb 10.6 L, Hct 33.6 L, MCV 84.4, MCH 26.6 L, MCHC 31.5 L, RDW 16.9, Plt Count 207, MPV 9.6, Neut % (Auto) 63.1, Lymph % (Auto) 21.5, Shoshone % (Auto) 7.2, Eos % (Auto) 6.8, Baso % (Auto) 0.8, Neut # (Auto) 5.2, Lymph # (Auto) 1.8, Shoshone # (Auto) 0.6, Eos # (Auto) 0.6 H, Baso # (Auto) 0.1, PT 10.3, INR 0.91, Sodium 134 L, Potassium 3.6, Chloride 98, Carbon Dioxide 30, Anion Gap 9.6, BUN 15, Creatinine 0.70, Estimated Creat Clear 134, Estimated GFR 88, Est GFR ( Amer) 106, Glucose 371 H, Calcium 9.1, Magnesium 1.3 L, Total Bilirubin 0.4, AST 31, ALT 28, Alkaline Phosphatase 179 H , Troponin I 0.04 H, NT-Pro-B Natriuret Pep 322 H, Total Protein 6.4, Albumin 3.5, Globulin 2.9, Albumin/Globulin Ratio 1.2 09/03/24 12:12: SARS-CoV-2 (PCR) Not detected, Influenza A Untype (PCR) Not detected, Influenza Type B (PCR) Not detected I & O for Last 24 hours: Intake & Output 08/31/24 09/01/24 09/02/24 09/03/24 23:59 23:59 23:59 23:59 Weight 91.172 kg Constitutional Constitutional: no acute distress, obese, chronically ill appearing and cooperative *Routine HEENT Exam Head: Present normocephalic Eye: Present EOMI and PERRL ENT: Present mucous membranes moist *Routine Neck Exam Neck: Present supple; Absent lymphadenopathy *Routine Respiratory Exam Respiratory: Present crackles (bases); Absent accessory muscle use, respiratory distress, stridor or wheezes *Routine Cardiovascular Exam Cardiovascular: Present RRR *Routine Abdominal Exam Abdominal: Present soft and normoactive bowel sounds; Absent tenderness *Routine Rectal Exam Rectal:: deferred *Routine Genitalia Exam Genitalia:: deferred *Routine Extremities Exam Extremities: Present edema (2+ to knees); Absent cyanosis or clubbing *Routine Skin Exam Skin: Present intact and warm; Absent rash *Routine Neurological Exam Neurological: Present alert, oriented X3, CN II-XII intact and moving all extremities; Absent altered mental status Assessment and Plan *Assessment and plan (1) Hypertensive emergency: Status: Acute Category: Medical Code(s): I16.1 - Hypertensive emergency (2) Hypomagnesemia: Status: Acute Category: Medical Code(s): E83.42 - Hypomagnesemia (3) Headache: Status: Acute Category: Medical Code(s): R51.9 - Headache, unspecified (4) Cirrhosis of liver: Status: Acute Qualifiers: Hepatic cirrhosis type: unspecified hepatic cirrhosis Ascites presence: without ascites Qualified Code(s): K74.60 - Unspecified cirrhosis of liver Category: Medical Code(s): K74.60 - Unspecified cirrhosis of liver (5) Iron deficiency anemia: Status: Acute Qualifiers: Iron deficiency anemia type: unspecified iron deficiency Qualified Code(s): D50.9 - Iron deficiency anemia, unspecified Category: Medical Code(s): D50.9 - Iron deficiency anemia, unspecified (6) GERD (gastroesophageal reflux disease): Status: Acute Qualifiers: Esophagitis presence: esophagitis presence not specified Qualified Code(s): K21.9 - Gastro-esophageal reflux disease without esophagitis Category: Medical Code(s): K21.9 - Gastro-esophageal reflux disease without esophagitis (7) Elevated troponin I level: Status: Acute Category: Medical Code(s): R79.89 - Other specified abnormal findings of blood chemistry (8) Hyperglycemia due to type 2 diabetes mellitus: Status: Acute Qualifiers: 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 Case discussed with ER physician, request admission for aggressive management, Cardene drip. I agreed to admit for further care. Cardiology consulted to assist with management and outpatient follow-up when stable to discharge home. Admitted to ICU for further care. Problems addressed as follows: Hypertensive emergency Elevated troponin Elevated BNP -Patient presents with headache, found to have troponin of 0.04 on initial eval, every 3 hour follow-up pending. Systolic greater than 200. Initiated on Cardene drip. Goal of 20% reduction in the first 18 hours -Cardiology consulted, appreciate their recommendations. Discussed case, will initiate irbesartan this evening along with diuretics given elevated BNP and concern for volume overload. Patient has edema peripherally and pulmonary edema on exam. Lasix 40 mg IV once. Spironolactone 25 mg in the morning. -Stable on room air, goal sats greater 90%. Per my review of chest x-ray, has pulmonary edema and lower lung burns. -White count normal at 8.3. -Normal ordered for the morning -BNP elevated at 322 Mild chronic iron deficiency anemia -Hemoglobin 10.6. Transfusion threshold hemoglobin less than 7. Iron studies pending. Diabetes -Hyperglycemia of 371 on presentation. A1c obtained, 6.8. Continue basal regimen with Lantus in the morning, decreased to 50 units. Initiate sliding scale insulin with fingersticks ACHS. -Continue metformin 1000 mg twice daily per home regimen Headache: Tylenol as needed 650 mg every 4-6 hours for breakthrough pain. GERD: Continue pantoprazole 40 mg nightly Neuropathy: Continue home Lyrica 300 mg twice daily Kidney function normal with BUN 15, creatinine 0.7. Potassium 3.6. Magnesium 1.3. Replacing with 2 g IV. monitoring of electrolytes daily with repeat CBC, CMP, magnesium ordered for the morning. Full code Diabetic diet Lovenox 40 mg subcu daily
--- NOTE | 2024-09-03 13:35 | PC.NURSE ---
I rounded on the pt. Her BP decreased. I notified Fortunato HEREDIA. He states to hold the nicardipine drip at this time. no new complaints. no needs voiced. call andino in reach.
[2024-09-03] MEDS: MAGNESIUM SULFATE IN WATER 2 GM/50 ML PIGGYBACK IV ×2 (13:36→20:27)
[2024-09-03] MEDS: ASPIRIN 81MG CHEWABLE TABLET 324 MG PO (13:39)
[2024-09-03] MEDS: INSULIN HUMAN REGULAR 100 UNITS/ML 10ML VIAL 5 UNIT IVP (13:39)
--- NOTE | 2024-09-03 13:39 | PC.NURSE ---
HS aware of admission
--- NOTE | 2024-09-03 14:02 | PC.NURSE ---
Pts BP increased. Fortunato HEREDIA wants the nicardipine drip given. I notified pharmacy. They are going to make the drip and bring it down.
--- NOTE | 2024-09-03 14:10 | PC.NURSE ---
report given to [facility] ICU
--- NOTE | 2024-09-03 14:17 | PC.NURSE ---
KULDIP MUNOZ FROM ICU HERE TO TAKE PT TO [phone]
--- NOTE | 2024-09-03 14:31 | PC.NURSE ---
Pt arrived on unit at 1425 via wheelchair with primary RN Anna Serna
[2024-09-03] MEDS: NICARDIPINE HCL 25 MG in 0.9 % SODIUM CHLORIDE 240 ML 50 MG IV (14:42)
[2024-09-03 14:46] LABS: POC Glucose,Bedside 346 (70-110)
[2024-09-03 15:02] LABS: Free Thyroxine Index 2.2 ug/dL (5.93-13.13); T4 (Thyroxine) 8.1 ug/dl (5.53-11.0); Triiodothryronine (T3) Uptake 27 % (23.5-40.5)
--- NOTE | 2024-09-03 15:11 | P.CONCA_ITS ---
History of Present Illness History of Present Illness Consult date: 09/03/24 Requesting physician: Jhonny Gibbons Chief complaint: headache, high BP History of present illness: This is a 54-year-old white female who was admitted to the hospital for malignant hypertension. The patient states that she has had a really bad headache for approximately 1 week with no improvement. She states that on Sunday she called her primary care provider who started her on metoprolol and Fioricet for her high blood pressure and headache. She states that the medications made her sick so over the weekend and her metoprolol was switched to losartan 25 mg daily for her hypertension. She states that her blood pressure initially did lower but then continued to elevate. She states that her headache was significant today so she came to the emergency department after her blood pressure was 200 systolic at home. Her blood pressure was malignantly elevated on arrival to the emergency department and she has been started on a Cardene drip. She denies any chest pain or pressure. She states that she does feel a little short of breath when her blood pressure is significantly high. She states that she feels like she has to take deep breaths to catch her breath. She denies any lower extremity edema. She denies any fever, chills, nausea, vomiting, diarrhea, PND orthopnea. She does easily fall asleep multiple times while I am talking to her. [facility] Disclaimer: The information contained in this section may have been updated after the patient was seen, as this information can be updated by other users. Medical History (Updated 09/03/24 @ 15:19 by Talisha Renae APRN) History of fibromyalgia History of hypertension Rheumatoid arthritis Diabetes Amputation toe History of COVID-19 History of gastroesophageal reflux (GERD) Surgical History (Updated 09/03/24 @ 15:09 by Patti Serna RN) History of esophagogastroduodenoscopy (EGD) History of colonoscopy History of amputation of toe History of ankle surgery History of appendectomy History of hysterectomy History of cholecystectomy Family History Other Cancer Colon cancer Diabetes Enlarged heart Heart disease Social History Smoking Status: Current every day smoker alcohol intake: never substance use type: denies use current occupational status: unemployed Travel in the last 8 weeks: None caffeine: Yes Have you lived/traveled outside [place] in past 30 days?: No Contact w/someone who lives/traveled outside US past 30 days?: No Exposure to someone with infectious disease in past 14 days?: No Do you have a fever (greater than 100.4 F or 38 C)?: No Have you tested positive for COVID-19: No Exposed to someone with COVID-19 in past 14 days?: No Do you have a sore throat?: No Do you have a cough?: No Do you have any weakness?: No Do you have any diarrhea?: No Are you experiencing any unusual bleeding?: No Do you have any muscle aches/pain?: No Do you have any abdominal pain?: No Are you experiencing loss of taste or smell?: No Review of Systems Review of Systems Review of systems:: pertinent systems reviewed and negative unless documented below Constitutional Constitutional: Reports system reviewed and no additional complaints, except as documented, Reports fatigue, Reports headache(s) and Reports lethargy Eyes Eyes: Reports system reviewed and no additional complaints, except as documented ENT Ears, Nose, Mouth, and Throat: Reports system reviewed and no additional complaints, except as documented and Reports headache(s) *Cardiovascular Cardiovascular: Reports system reviewed and no additional complaints, except as documented, Denies chest pain, Reports dyspnea, Reports dyspnea on exertion and Denies edema *Respiratory Respiratory: Reports system reviewed and no additional complaints, except as documented, Reports dyspnea and Reports dyspnea on exertion *Gastrointestinal Gastrointestinal: Reports system reviewed and no additional complaints, except as documented *Genitourinary Genitourinary: Reports system reviewed and no additional complaints, except as documented *Musculoskeletal Musculoskeletal: Reports system reviewed and no additional complaints, except as documented Integumentary/Breasts Skin/Breast: Reports system reviewed and no additional complaints, except as documented *Neurologic Neurologic: Reports system reviewed and no additional complaints, except as documented and Reports headache(s) Psychiatric Psychiatric: Reports system reviewed and no additional complaints, except as documented Endocrine Endocrine: Reports system reviewed and no additional complaints, except as documented and Reports fatigue Hematologic/Lymphatic Hematologic/Lymphatic: Reports system reviewed and no additional complaints, except as documented Allergic/Immunologic Allergic/Immunologic: Reports system reviewed and no additional complaints, except as documented Exam Data for Last 24 hours Vital signs and Labs for Last 24 Hours: Temp Pulse Resp BP Pulse Ox O2 Del Method 98.0 F 90 18 179/101 H 94 L Room Air 09/03/24 14:30 09/03/24 14:37 09/03/24 14:30 09/03/24 14:30 09/03/24 14:30 09/03/24 14:30 Laboratory Results - last 24 hr 09/03/24 11:25: WBC 8.3, RBC 3.98 L, Hgb 10.6 L, Hct 33.6 L, MCV 84.4, MCH 26.6 L, MCHC 31.5 L, RDW 16.9, Plt Count 207, MPV 9.6, Neut % (Auto) 63.1, Lymph % (A uto) 21.5, [place] % (Auto) 7.2, Eos % (Auto) 6.8, Baso % (Auto) 0.8, Neut # (Auto) 5.2, Lymph # (Auto) 1.8, [place] # (Auto) 0.6, Eos # (Auto) 0.6 H, Baso # (Auto) 0.1, PT 10.3, INR 0.91, Sodium 134 L, Potassium 3.6, Chloride 98, Carbon Dioxide 30, Anion Gap 9.6, BUN 15, Creatinine 0.70, Estimated Creat Clear 134, Estimated GFR 88, Est GFR ( Amer) 106, Glucose 371 H, Calcium 9.1, Magnesium 1.3 L, Total Bilirubin 0.4, AST 31, ALT 28, Alkaline Phosphatase 179 H, Troponin I 0.04 H, NT-Pro-B Natriuret Pep 322 H, Total Protein 6.4, Albumin 3.5, Globulin 2.9, Albumin/Globulin Ratio 1.2, Free T4 Index 2.2 L, Thyroxine (T4) 8.1, T3 Uptake 27 09/03/24 12:12: SARS-CoV-2 (PCR) Not detected, Influenza A Untype (PCR) Not detected, Influenza Type B (PCR) Not detected 09/03/24 14:31: POC Glucose 346 H* I & O for Last 24 hours: Intake & Output 08/31/24 09/01/24 09/02/24 09/03/24 23:59 23:59 23:59 23:59 Output Total 400 / 400 Balance -400 / -400 Weight 218 lb 9 oz Constitutional Constitutional: no acute distress and obese *Routine HEENT Exam Head: Present normocephalic and atraumatic ENT: Present mucous membranes moist *Routine Neck Exam Neck: Present supple, full ROM and normal carotid upstroke; Absent JVD, carotid bruit or lymphadenopathy *Routine Respiratory Exam Respiratory: Present CTA bilaterally, normal respiratory effort, able to speak in complete sentences and symmetric chest movement *Routine Cardiovascular Exam Cardiovascular: Present RRR, Normal S1 and Normal S2; Absent murmur or gallop *Routine Abdominal Exam Abdominal: Present soft and normoactive bowel sounds; Absent tenderness, distended or organomegaly *Routine Extremities Exam Extremities: Present full ROM, pulses intact and normal capillary refill; Absent cyanosis, clubbing or edema *Routine Skin Exam Skin: Present intact and warm; Absent erythema *Routine Neurological Exam Neurological: Present alert, oriented X3 and CN II-XII intact; Absent sensory deficit or motor deficit Routine Psychiatric Exam Psychiatric: Present normal affect Meds Home Medications and Allergies Home Medications ?Medication ?Instructions ?Recorded ?Confirmed ?Type flash glucose sensor (FreeStyle #1 ea 04/28/24 09/03/24 History Benedict 2 Sensor kit) insulin glargine 100 unit/mL (3 70 unit SQ DAILY 04/28/24 09/03/24 History mL) subcutaneous pen (Lantus Solostar U-100 Insulin) insulin lispro 100 unit/mL 0 sliding scale dose SQ TID 04/28/24 09/03/24 History subcutaneous pen (Humalog KwikPen (U-100) Insulin) metformin 1,000 mg tablet 1,000 mg PO BID 04/28/24 09/03/24 History pregabalin 300 mg capsule (Lyrica) 300 mg PO BID 04/28/24 09/03/24 History omeprazole 40 mg capsule,delayed 40 mg PO DAILY #30 caps 05/26/24 09/03/24 Rx release ferrous sulfate 325 mg (65 mg 325 mg PO DAILY 07/01/24 09/03/24 History iron) tablet furosemide 40 mg tablet 40 mg PO DAILY PRN Edema 07/01/24 09/03/24 History losartan 25 mg tablet 50 mg PO DAILY 07/01/24 09/03/24 History semaglutide 2 mg/dose (8 mg/3 mL) 4 mg SQ QWEEK 07/01/24 09/03/24 History subcutaneous pen injector (Ozempic) clonidine HCl 0.1 mg tablet 0.1 mg PO BIDP PRN htn 09/03/24 09/03/24 History New Prescriptions to Start Prescriptions: Allergies Allergy/AdvReac Type Severity Reaction Status Date / Time hydrocodone Allergy Mild Rash Verified 09/03/24 15:09 Sulfa (Sulfonamide Allergy Mild Difficulty Verified 09/03/24 15:09 Antibiotics) Swallowing Assessment and Plan *Assessment and plan (1) Elevated troponin I level: Status: Acute Category: Medical Code(s): R79.89 - Other specified abnormal findings of blood chemistry (2) Hypertensive emergency: Status: Acute Category: Medical Code(s): I16.1 - Hypertensive emergency (3) Elevated brain natriuretic peptide (BNP) level: Status: Acute Category: Medical Code(s): R79.89 - Other specified abnormal findings of blood chemistry (4) Hyperglycemia due to type 2 diabetes mellitus: Status: Acute Qualifiers: Diabetes mellitus correction insulin use: with correction use Qualified Code(s): E11.65 - Type 2 diabetes mellitus with hyperglycemia; Z79.4 - halfway (current) use of insulin Category: Medical Code(s): E11.65 - Type 2 diabetes mellitus with hyperglycemia (5) Cirrhosis of liver: Status: Acute Qualifiers: Ascites presence: without ascites Hepatic cirrhosis type: unspecified hepatic cirrhosis Qualified Code(s): K74.60 - Unspecified cirrhosis of liver Category: Medical Code(s): K74.60 - Unspecified cirrhosis of liver (6) Iron deficiency anemia: Status: Acute Qualifiers: Iron deficiency anemia type: unspecified iron deficiency Qualified Code(s): D50.9 - Iron deficiency anemia, unspecified Category: Medical Code(s): D50.9 - Iron deficiency anemia, unspecified (7) GERD (gastroesophageal reflux disease): Status: Acute Qualifiers: Esophagitis presence: esophagitis presence not specified Qualified Code(s): K21.9 - Gastro-esophageal reflux disease without esophagitis Category: Medical Code(s): K21.9 - Gastro-esophageal reflux disease without esophagitis Plan Plan: 1. The patient was admitted to the hospital with hypertensive emergency. Her blood pressure was malignantly elevated. She has been started on a Cardene drip. Will continue the Cardene drip for now. 2. Start irbesartan 150 mg p.o. daily and stop Cardene drip. 3. Will obtain an echocardiogram to evaluate her LV function due to her shortness of breath and malignant hypertension. 4. The patient's initial troponin was slightly elevated. This is most likely a type II non-STEMI due to her malignant hypertension. Will do serial troponins. 5. Repeat EKG in the morning. 6. Start aspirin 81 mg daily if her troponin continues to trend upward. 7. Her LDL goal is less than 55. Will get a liver and lipid panel in the morning. 8. The patient was recently diagnosed with cirrhosis of the liver. Will defer to the hospitalist. 9. The patient does have iron deficiency anemia. She had a recent EGD and c olonoscopy. Her anemia is currently stable. She would benefit from IV iron. But we will leave this up to the hospitalist. 10. The patient is diabetic. She will need aggressive control of her diabetes. She is on Ozempic and metformin as well as insulin. 11. Highly suspect that she is having acute HFpEF. Will give her Lasix 40 mg IV twice daily for diuresis. 12. Start spironolactone 25 mg p.o. daily for diuresis and her hypertension. 13. Further recommendations will be made pending the patient's response to treatment and the results of her echocardiogram today. Thank you for the opportunity to help participate in the care of this patient. All recommendations and orders are per Dr. Gomes.
[2024-09-03 15:15] LABS: Thyroid Stimulating Hormone 1.25 uIU/mL (0.465-4.68)
--- NOTE | 2024-09-03 15:25 | CA_ITS ---
APPROVED REPORT EXAM: Comprehensive 2D, Doppler, and color-flow Echocardiogram [facility] [employer] Clerk: Heidi Morrow RVT Ht: 5 ft 3 in Wt: 218lbs BSA: 2.01 BP: 127/77 mmHg Indications: SOA,ELEVATED TROP,HTN,SMOKER,DM,CIRRHOSIS 2D Dimensions IVSd 1.42 cm F: 0.6-1.0 LVEF (Visual) 56.20 % PWd 0.94 cm F: 0.6 - 1.0 LA Volume 47.10 mL LVDd 4.61 cm F: 3.9 - 5.3 LA Volume Index 23.43 mL/m2 (M/F) 16-34 LVDs 3.26 cm F: 2.2 - 3.5 M-Mode Dimensions LA Diam 3.85 cm (1.9-4.0) TAPSE 2.46 (<1.7) LV Diastology E Decel Time 150 (160-240 msec) E/A Ratio 0.8 Aortic Valve NADJA Index 1.16 cm2/m2 AoV Peak Jose. 204.0 (50-130 cm/s) AO Peak GR. 16.60 mmHg AO Mean GR. 8.10 (<5 mmHg) AO VTI 33.5 (18-25 cm) NADJA (VTI) 2.37 (2.5-4.5 cm2) Mitral Valve MV E Max Jose. 96.0 (40-130 cm/s) MV A Velocity 122.0 (40-130 cm/s) E/A Ratio 0.79 MV PHT 44.0 ms Pulmonary Valve PV Peak Velocity 117.0 (50-150 cm/s) Left Ventricle The left ventricle is normal size. The left ventricular systolic function is normal. The left ventricular ejection fraction is within the normal range. There is increase in LV wall thickness. There is normal LV segmental wall motion. Grade 2 diastolic dysfunction is present. LVEF is 55%. Right Ventricle The right ventricle is mildly dilated. The right ventricular systolic function is normal. Atria Left atrium is mildly dilated. Right atrium is mildly dilated. There is no Doppler evidence of interatrial shunt. Aortic Valve The aortic valve is mildly thickened. There is no aortic valvular stenosis. Trace aortic regurgitation. Mitral Valve The mitral valve leaflets are mildly thickened. Mild mitral regurgitation. No evidence of mitral valve stenosis. Tricuspid Valve Tricuspid valve is grossly normal in structure and function. Trace tricuspid regurgitation. There is insufficient TR jet to estimate RVSP. Pulmonic Valve The pulmonary valve is normal in structure. Trace pulmonic regurgitation. Great Vessels The aortic root is normal in size. IVC is normal in size and collapses >50% with inspiration. Pericardium There is no pericardial effusion. Other Information Study Quality: Fair Conclusion Normal biventricular systolic function. Grade 2 diastolic dysfunction. Mild RV dilation. Mild biatrial dilation. Mild MR. In the setting of known cirrhosis and presence of increased LV wall thickness with diastolic dysfunction, further outpatient evaluation for infiltrative cardiomyopathy, namely hemochromatosis, is suggested with cardiac MRI (hemochromatosis protocol, needs CMR scanner with capacity to perform T2* sequences). Clinical correlation is required. Electronically signed by : Nicole Gomes MD 09/03/2024 23:26:14
[2024-09-03 15:46] LABS: Hemoglobin A1C 6.8 % (4.0-6.0)
[2024-09-03] MEDS: SPIRONOLACTONE 25MG TABLET 25 MG PO (15:50)
[2024-09-03] MEDS: IRBESARTAN 150MG TAB 150 MG PO (15:50)
[2024-09-03] MEDS: FUROSEMIDE 40MG/4ML VIAL 40 MG IV (15:50)
--- NOTE | 2024-09-03 15:58 | PC.NURSE ---
Nam gtt stopped @ 1998.
[2024-09-03 16:14] LABS: Troponin I 0.03 ng/ml (0.00-0.034)
--- NOTE | 2024-09-03 16:17 | XR_ITS ---
PROCEDURE INFORMATION: Exam: XR Chest Exam date and time: 09/03/2024 4:18 PM Age: 54 years old Clinical indication: Shortness of breath; Additional info: SOA TECHNIQUE: Imaging protocol: Radiologic exam of the chest. Views: 1 view. COMPARISON: CT ANGIO NECK 09/03/2024 12:50 PM FINDINGS: Lungs: Mild bibasilar atelectasis. No airspace consolidation. Pleural spaces: Unremarkable. No pleural effusion. No pneumothorax. Heart/Mediastinum: Unremarkable. No cardiomegaly. Bones/joints: Mild thoracolumbar spinal curvature. IMPRESSION: Mild bibasilar atelectasis.
[2024-09-03 16:36] LABS: POC Glucose,Bedside 344 (70-110)
[2024-09-03] MEDS: humaLOG 100 UNITS/ML 10ML VIAL (SSI) SUBCUT ×2 (16:41→20:28)
--- NOTE | 2024-09-03 17:49 | PC.NURSE ---
New admit this shift. Pt is A/Ox4. Remains on room air. Reports some SOA that increases w/ activity. Denies CP. Medicated per MAR for hypertension. Nam molina DC'd per order from cards. Call thu w/in reach. at bedside. Pt currently lying in bed watching a movie on her IPad. POC ongoing.
[2024-09-03 19:16] LABS: Troponin I 0.03 ng/ml (0.00-0.034)
[2024-09-03 20:23] LABS: POC Glucose,Bedside 458 (70-110)
[2024-09-03] MEDS: CARVEDILOL 6.25MG TABLET 6.25 MG PO (20:25)
[2024-09-03] MEDS: PANTOPRAZOLE 40MG TABLET 40 MG PO (20:26)
[2024-09-03] MEDS: PREGABALIN 300 MG 300 EACH PO (20:34)
[2024-09-03] MEDS: PATIENT'S OWN HOME MEDICATION (Metformin 1,000 mg tablet) 1000 EACH PO (21:11)
[2024-09-03] MEDS: HYDRALAZINE 20MG/ML VIAL 10 MG IV (22:53)
[2024-09-04] VITALS (29 sets, daily range): BP systolic 124–166; BP diastolic 56–122; PULSE 76–106; RESP 11–24; TEMP 36.4–37; O2SAT 92–97; BMI 39.0
[2024-09-04] MEDS: humaLOG 100 UNITS/ML 10ML VIAL (SSI) SUBCUT ×2 (05:56→11:35)
[2024-09-04 05:58] LABS: POC Glucose,Bedside 246 (70-110)
--- NOTE | 2024-09-04 06:22 | ECG_ITS ---
APPROVED REPORT Exam: Resting ECG HR:100 bpm ECG Measurements Heart Rate 100 AXES SD 128 P 58 QRSd 88 QRS -22 QT 356 T 32 QTc 413 Conclusion SINUS TACHYCARDIA BORDERLINE LEFT AXIS DEVIATION [QRS AXIS < -20] VOLTAGE CRITERIA FOR LVH [MEETS CRITERIA IN ONE OF: R(aVL), S(V1), R(V5), R(V5/V6)+S(V1)] NONSPECIFIC T-WAVE ABNORMALITY ABNORMAL ECG UNCONFIRMED REPORT Electronically signed by : Elvis Lundberg MD 09/04/2024 12:51:08
[2024-09-04 06:35] LABS: Basophils % 0.2 % (0.1-2.0); Eosinophils % 0.1 % (0.1-12.0); Hematocrit 32.8 % (37.0-47.0); Hemoglobin 10.9 g/dL (12.2-16.2); Lymphocytes # 1.7 K/mm3 (0.7-4.5); Lymphocytes % 10.3 % (10-50); Mean Corpuscular HGB Conc 33.2 g/dL (31.8-35.4); Mean Corpuscular Hemoglobin 27.2 pg (27.0-31.2); Mean Corpuscular Volume 81.8 fl (81-99); Mean Platelet Volume 10.1 fl (7.4-10.4); Monocytes # 0.9 K/mm3 (0.1-1.0); Monocytes % 5.7 % (1.7-9.3); Neutrophils # 13.7 K/mm3 (1.8-7.8); Neutrophils % 83.2 % (37.0-80.0); Platelet Count 246 K/mm3 (142-424); Red Blood Count 4.01 M/mm3 (4.20-5.40); Red Cell Distribution Width 16.3 % (11.5-17.5); White Blood Count 16.5 K/mm3 (4.8-10.8)
[2024-09-04 06:53] LABS: Alanine Aminotransferase 34 U/L (12-78); Albumin Level 3.8 g/dl (3.5-5.0); Albumin/Globulin Ratio 1.3 (1.1-1.8); Alkaline Phosphatase 135 U/L (38-126); Anion Gap 12.8 mEq/L (5-15); Aspartate Amino Transferase 30 U/L (14-36); Bilirubin,Total 0.4 mg/dl (0.2-1.3); Blood Urea Nitrogen 25 mg/dl (7-17); Calcium 8.8 mg/dl (8.4-10.2); Carbon Dioxide 25 mmol/L (22.0-30.0); Chloride 100 mmol/L (98-107); Creatinine Clearance Estimated 147 mL/min (50-200); Estimated Glomerular Filt Rate 88 ml/min (>60); GFR (African American) 106 ML/MIN (>60); Glucose 243 mg/dl (74-100); Potassium 3.8 mmoL/L (3.5-5.1); Sodium 134 mmol/L (136-145); Total Protein,Serum 6.8 g/dl (6.3-8.2)
[2024-09-04 06:57] LABS: MANUAL DIFFERENTIAL MANUAL DIFFERENTIAL (MANUAL DIFF)
[2024-09-04 08:10] LABS: Eosinophils % 1 % (0-3); Lymphocytes % 13 % (10-50); Monocytes % 3 % (2-9); Neutrophils % 83 % (42-76); Platelet Estimate Normal; RBC Morphology Normal; Total Cells Counted 100
[2024-09-04] MEDS: ENOXAPARIN 40MG/0.4ML SYRINGE 40 MG SUBCUT (08:50)
[2024-09-04] MEDS: INSULIN GLARGINE 100 UNITS/ML 3ML FLEXPEN 50 UNIT SUBCUT (08:52)
[2024-09-04] MEDS: FUROSEMIDE 40MG/4ML VIAL 40 MG IV (08:52)
[2024-09-04] MEDS: IRBESARTAN 150MG TAB 150 MG PO (08:57)
[2024-09-04] MEDS: SPIRONOLACTONE 25MG TABLET 25 MG PO (08:57)
[2024-09-04] MEDS: CARVEDILOL 6.25MG TABLET 6.25 MG PO (09:00)
[2024-09-04] MEDS: PREGABALIN 100MG CAPSULE 300 MG PO (09:26)
[2024-09-04 09:40] LABS: POC Glucose,Bedside 369 (70-110)
--- NOTE | 2024-09-04 11:25 | P.PN_ITS ---
Subjective Subjective Date: 09/04/24 Time: 10:30 Principal diagnosis: Malignant hypertension Interval history: This is a 54-year-old white female who was admitted to the hospital for malignant hypertension. The patient states that she has had a really bad headache for approximately 1 week with no improvement. She was started on a Cardene drip yesterday and oral blood pressure medications. The Cardene drip was then stopped. This morning her blood pressure is under much better control. She states that her headache has resolved. She denies any chest pain or pressure. She denies any shortness of breath or edema. She denies any fever, chills, nausea, vomiting, diarrhea, PND orthopnea. She states that she is feeling much better and is ready to be discharged home today. Exam Data for Last 24 hours Vital signs and Labs for Last 24 Hours: Temp Pulse Resp BP Pulse Ox O2 Del Method O2 Flow Rate 98.3 F 97 H 24 136/117 H 95 Nasal Cannula 3 09/04/24 08:01 09/04/24 11:01 09/04/24 11:01 09/04/24 11:01 09/04/24 11:09/04/24 10:32 09/04/24 10:32 Laboratory Results - last 24 hr 09/03/24 11:25: WBC 8.3, RBC 3.98 L, Hgb 10.6 L, Hct 33.6 L, MCV 84.4, MCH 26.6 L, MCHC 31.5 L, RDW 16.9, Plt Count 207, MPV 9.6, Neut % (Auto) 63.1, Lymph % (Auto) 21.5, [place] % (Auto) 7.2, Eos % (Auto) 6.8, Baso % (Auto) 0.8, Neut # (Auto) 5.2, Lymph # (Auto) 1.8, [place] # (Auto) 0.6, Eos # (Auto) 0.6 H, Baso # (Auto) 0.1, PT 10.3, INR 0.91, Sodium 134 L, Potassium 3.6, Chloride 98, Carbon Dioxide 30, Anion Gap 9.6, BUN 15, Creatinine 0.70, Estimated Creat Clear 134, Estimated GFR 88, Est GFR ( Amer) 106, Glucose 371 H, Hemoglobin A1c 6.8 H, Calcium 9.1, Magnesium 1.3 L, Total Bilirubin 0.4, AST 31, ALT 28, Alkaline Phosphatase 179 H, Troponin I 0.04 H, NT-Pro-B Natriuret Pep 322 H, Total Protein 6.4, Albumin 3.5, Globulin 2.9, Albumin/Globulin Ratio 1.2, TSH 1.25, Free T4 Index 2.2 L, Thyroxine (T4) 8.1, T3 Uptake 27 09/03/24 12:12: SARS-CoV-2 (PCR) Not detected, Influenza A Untype (PCR) Not detected, Influenza Type B (PCR) Not detected 09/03/24 14:31: POC Glucose 346 H* 09/03/24 15:28: Troponin I 0.03 09/03/24 16:29: POC Glucose 344 H* 09/03/24 18:25: Troponin I 0.03 09/03/24 20:16: POC Glucose 458 H* 09/04/24 05:33: WBC 16.5 H D, RBC 4.01 L, Hgb 10.9 L, Hct 32.8 L, MCV 81.8, MCH 27.2, MCHC 33.2, RDW 16.3, Plt Count 246, MPV 10.1, Neut % (Auto) 83.2 H, Lymph % (Auto) 10.3, [place] % (Auto) 5.7, Eos % (Auto) 0.1, Baso % (Auto) 0.2, Neut # (Auto) 13.7 H, Lymph # (Auto) 1.7, [place] # (Auto) 0.9, Eos # (Auto) 0.0, Baso # (Auto) 0.0, Total Counted 100, Neutrophils % (Manual) 83 H, Lymphocytes % (Manual) 13, Monocytes % (Manual) 3, Eosinophils % (Manual) 1, Platelet Estimate Normal, RBC Morphology Normal, Sodium 134 L, Potassium 3.8, Chloride 100, Carbon Dioxide 25, Anion Gap 12.8, BUN 25 H D, Creatinine 0.70, Estimated Creat Clear 147, Estimated GFR 88, Est GFR ( Amer) 106, Glucose 243 H D, Calcium 8.8, Magnesium 2.0 D, Total Bilirubin 0.4, AST 30, ALT 34, Alkaline Phosphatase 135 H, Total Protein 6.8, Albumin 3.8, Globulin 3.0, Albumin/Globulin Ratio 1.3 09/04/24 05:51: POC Glucose 246 H 09/04/24 08:54: POC Glucose 369 H* I & O for Last 24 hours: Intake & Output 09/01/24 09/02/24 09/03/24 09/04/24 23:59 23:59 23:59 23:59 Intake Total 650.833 / 650.833 Output Total 2500 / 2500 1750 / 1750 Balance -1849.167 / -1849.167 -1750 / -1750 Weight 218 lb 9 oz 220 lb 7.396 oz Narrative: Echocardiogram shows: Normal biventricular systolic function. Grade 2 diastolic dysfunction. Mild RV dilation. Mild biatrial dilation. Mild MR. In the setting of known cirrhosis and presence of increased LV wall thickness with diastolic dysfunction, further outpatient evaluation for infiltrative cardiomyopathy, namely hemochromatosis, is suggested with cardiac MRI (hemochromatosis protocol, needs CMR scanner with capacity to perform T2* sequences). Clinical correlation is required. Constitutional Constitutional: no acute distress and obese *Routine HEENT Exam Head: Present normocephalic and atraumatic ENT: Present mucous membranes moist *Routine Neck Exam Neck: Present supple, full ROM and normal carotid upstroke; Absent JVD, carotid bruit or lymphadenopathy *Routine Respiratory Exam Respiratory: Present CTA bilaterally, normal respiratory effort, able to speak in complete sentences and symmetric chest movement *Routine Cardiovascular Exam Cardiovascular: Present RRR, Normal S1 and Normal S2; Absent murmur or gallop *Routine Abdominal Exam Abdominal: Present soft and normoactive bowel sounds; Absent tenderness, distended or organomegaly *Routine Extremities Exam Extremities: Present full ROM, pulses intact and normal capillary refill; Absent cyanosis, clubbing or edema *Routine Skin Exam Skin: Present intact and warm; Absent erythema *Routine Neurological Exam Neurological: Present alert, oriented X3 and CN II-XII intact; Absent sensory deficit or motor deficit Routine Psychiatric Exam Psychiatric: Present normal affect Progress Note: A&P Assessment and plan (1) Hypertensive emergency: Status: Acute (2) Hypomagnesemia: Status: Acute (3) Headache: Status: Acute (4) Cirrhosis of liver: Status: Acute (5) Iron deficiency anemia: Status: Acute (6) GERD (gastroesophageal reflux disease): Status: Acute (7) Hyperglycemia due to type 2 diabetes mellitus: Status: Acute (8) Abnormal echocardiogram: Status: Acute (9) Diastolic dysfunction: Status: Acute Assessment and Plan Assessment and Plan for All Diagnoses:: Plan: 1. The patient was admitted to the hospital with hypertensive emergency. She was started on a Cardene drip and then started on oral irbesartan, labetalol and Aldactone. She was also given IV Lasix. Cardene drip was stopped last night. Her blood pressure is under much better control today and she is feeling much better. 2. Echocardiogram shows a normal ejection fraction with grade 2 diastolic dysfunction. She also has LV wall thickness. In the setting of her LV wall thickness and known diastolic dysfunction and liver cirrhosis, further evaluation with cardiac MRI is recommended on an outpatient basis. She will need a cardiac MRI with hemochromatosis protocol and a cardiac MRI scanner with capacity to perform T2* sequences. 3. The patient's initial troponin was elevated but her other 2 repeat troponins were negative. This is most likely from demand ischemia from her malignant hyp ertension. 4. The patient was recently diagnosed with cirrhosis of the liver. Will defer to the hospitalist. 5. The patient does have iron deficiency anemia. She had a recent EGD and colonoscopy. Her anemia is currently stable. She would benefit from IV iron. But we will leave this up to the hospitalist. 6. The patient is diabetic. She will need aggressive control of her diabetes. She is on Ozempic and metformin as well as insulin. 7. Her LDL goal is less than 100. Will get a lipid panel. 8. Her blood pressure is under much better control today. While I am evaluating the patient her blood pressure is 125/64. The patient can be discharged home from a cardiac standpoint. She will need follow-up in cardiology clinic in 1 to 2 weeks on outpatient basis. 9. The patient can be discharged on the following cardiac medications: Carvedilol 6.25 mg twice daily, irbesartan 150 mg daily, Aldactone 25 mg daily, Lasix 40 mg daily. Thank you for the opportunity to help participate in the care of this patient. All recommendations and orders are per Dr. Gomes.
[2024-09-04 11:37] LABS: POC Glucose,Bedside 301 (70-110)
[2024-09-04 11:41] LABS: Cholesterol 201 mg/dl (140-200); Triglycerides 82 mg/dl (30-150); VLDL Cholesterol 16 mg/dL (0-40)
[2024-09-04 11:42] LABS: Chol/HDL Ratio 2.5 (1-3.5); HDL Cholesterol 79 mg/dl (40-60)
[2024-09-04 11:54] LABS: Direct LDL Cholesterol 99.45 mg/dL (100-129)
--- NOTE | 2024-09-04 12:11 | P.DS_ITS ---
General Admission date:: 09/03/24 Discharge date: 09/04/24 HPI HPI HPI: Ms. Del Angel is a 54-year-old female with type 2 diabetes and obesity who presents to the ER with complaint of headache for the past week. States that headaches been getting worse. Was started on metoprolol and Fioricet but had side effects to these and they made her ill so she discontinued them. Has noted to have worsening blood pressure. Recently started on losartan and clonidine, last dose of clonidine was yesterday. Presentation to the ER found to have severely elevated blood pressure with systolics above 200. Workup with labs showed elevation of troponin at 0.04. Had no ischemic changes on EKG. Given the severity of her hypertension, concern for hypertensive emergency. Patient initiated on nicardipine drip and medicine was consulted for further management. She denies any chest pain, pressure, nausea or vomiting. Has been fatigued lately but not sleeping well at night. Denies fever, cough, shortness of breath. at bedside helps supplement history. On arrival to the floor, patient is stable on room air. She is afebrile. Systolic is 170-190. Alert and oriented x 4. Found to have peripheral edema an d crackles on exam Reports her diabetes is well-controlled using her Dexcom. Glucose runs in the green . Also states she is recently been diagnosed with cirrhosis. Denies alcohol consumption, tobacco use, or drug use. Does vape occasionally. Hospital Course Hospital Course Hospital Course: 54-year-old female who presents with headache, found to have hypertensive emergency with bump in troponin. Case discussed with ER physician, request admission for aggressive management, Cardene drip. I agreed to admit for further care. Cardiology consulted to assist with management and outpatient follow-up when stable to discharge home. Admitted to ICU for Cardene drip. Blood pressure improved overnight and able to transition oral regimen. Given her clinical improvement, stable discharge home with management as an outpatient with cardiology for further workup. Patient feeling significantly better per her report. Problems addressed as follows Hypertensive emergency Elevated troponin Elevated BNP -Patient presents with headache, found to have troponin of 0.04 on initial eval, trended down on serial levels. Systolic blood pressure was greater than 200. She was initiated on Cardene drip. Showed improvement. Initiated regimen including beta-dominique and ARB along with diuretic to improve control for outpatient regimen. Cardiology was consulted and evaluated patient. Echo obtained showing normal EF with grade 2 diastolic dysfunction. Recommend initiating carvedilol 6.25 mg twice daily, irbesartan 150 mg daily, Aldactone 25 mg daily, and Lasix 40 mg daily. Will need further workup as an outpatient such as cardiac MRI. Concerned that in her setting of cirrhosis and LV wall thickness, may have a component of hemochromatosis. Will pursue hemochromatosis protocol and MRI. Responded well to treatment during admission with diuretics and blood pressure regimen. Blood pressure much improved at time of large at 138/81. Patient relatively asymptomatic with resolution of headache. Discharge home with close follow-up Mild chronic iron deficiency anemia -Hemoglobin 10.6. Transfusion threshold hemoglobin less than 7. Iron studies obtained in July, within normal range. Further management as an outpatient Diabetes -Hyperglycemia of 371 on presentation. A1c obtained, 6.8. Resume home regimen at discharge. Hyperglycemia likely related to steroids received in the ER. No changes to regimen at this time given her well-controlled A1c at 6.8. Headache: Tylenol as needed 650 mg every 4-6 hours for breakthrough pain. GERD: Continue pantoprazole 40 mg nightly Neuropathy: Continue home Lyrica 300 mg twice daily Kidney function normal with BUN 15, creatinine 0.7. Potassium 3.6. Magnesium 1.3. Replacing with 2 g IV. monitoring of electrolytes daily with repeat CBC, CMP, magnesium ordered for the morning. Total time spent on discharge 32 minutes in counseling, documentation, chart review, and direct care with patient. Exam Data for Last 24 hours Vital signs and Labs for Last 24 Hours: Temp Pulse Resp BP Pulse Ox O2 Del Method 98.3 F 97 H 24 136/117 H 95 Room Air 09/04/24 08:01 09/04/24 11:09/04/24 11:09/04/24 11:09/04/24 11:09/04/24 11:00 Laboratory Results - last 24 hr 09/03/24 11:25: PT 10.3, INR 0.91, Sodium 134 L, Potassium 3.6, Chloride 98, Carbon Dioxide 30, Anion Gap 9.6, BUN 15, Creatinine 0.70, Estimated Creat Clear 134, Estimated GFR 88, Est GFR ( Amer) 106, Glucose 371 H, Hemoglobin A1c 6.8 H, Calcium 9.1, Magnesium 1.3 L, Total Bilirubin 0.4, AST 31, ALT 28, Alkaline Phosphatase 179 H, Troponin I 0.04 H, NT-Pro-B Natriuret Pep 322 H, Total Protein 6.4, Albumin 3.5, Globulin 2.9, Albumin/Globulin Ratio 1.2, TSH 1.25, Free T4 Index 2.2 L, Thyroxine (T4) 8.1, T3 Uptake 27 09/03/24 12:12: SARS-CoV-2 (PCR) Not detected, Influenza A Untype (PCR) Not detected, Influenza Type B (PCR) Not detected 09/03/24 14:31: POC Glucose 346 H* 09/03/24 15:28: Troponin I 0.03 09/03/24 16:29: POC Glucose 344 H* 09/03/24 18:25: Troponin I 0.03 09/03/24 20:16: POC Glucose 458 H* 09/04/24 05:33: WBC 16.5 H D, RBC 4.01 L, Hgb 10.9 L, Hct 32.8 L, MCV 81.8, MCH 27.2, MCHC 33.2, RDW 16.3, Plt Count 246, MPV 10.1, Neut % (Auto) 83.2 H, Lymph % (Auto) 10.3, [place] % (Auto) 5.7, Eos % (Auto) 0.1, Baso % (Auto) 0.2, Neut # (Auto) 13.7 H, Lymph # (Auto) 1.7, [place] # (Auto) 0.9, Eos # (Auto) 0.0, Baso # (Auto) 0.0, Total Counted 100, Neutrophils % (Manual) 83 H, Lymphocytes % (Manual) 13, Monocytes % (Manual) 3, Eosinophils % (Manual) 1, Platelet Estimate Normal, RBC Morphology Normal, Sodium 134 L, Potassium 3.8, Chloride 100, Carbon Dioxide 25, Anion Gap 12.8, BUN 25 H D, Creatinine 0.70, Estimated Creat Clear 147, Estimated GFR 88, Est GFR ( Amer) 106, Glucose 243 H D, Calcium 8.8, Magnesium 2.0 D, Total Bilirubin 0.4, AST 30, ALT 34, Alkaline Phosphatase 135 H, Total Protein 6.8, Albumin 3.8, Globulin 3.0, Albumin/Globulin Ratio 1.3, Triglycerides 82, Cholesterol 201 H, LDL Cholesterol Direct 99.45 L, VLDL Cholesterol 16, HDL Cholesterol 79 H, Cholesterol/HDL Ratio 2.5 09/04/24 05:51: POC Glucose 246 H 09/04/24 08:54: POC Glucose 369 H* 09/04/24 11:18: POC Glucose 301 H* I & O for Last 24 hours: Intake & Output 09/01/24 09/02/24 09/03/24 09/04/24 23:59 23:59 23:59 23:59 Intake Total 650.833 / 650.833 Output Total 2500 / 2500 1750 / 1750 Balance -1849.167 / -1849.167 -1750 / -1750 Weight 99.138 kg 100 kg Constitutional Constitutional: no acute distress, obese, chronically ill appearing and cooperative *Routine HEENT Exam Head: Present normocephalic Eye: Present EOMI and PERRL ENT: Present mucous membranes moist *Routine Neck Exam Neck: Present supple; Absent lymphadenopathy *Routine Respiratory Exam Respiratory: Present CTA bilaterally; Absent rhonchi, wheezes or crackles *Routine Cardiovascular Exam Cardiovascular: Present RRR *Routine Abdominal Exam Abdominal: Present soft and normoactive bowel sounds; Absent tenderness *Routine Rectal Exam Patient deferred: visual exam *Routine Exam Patient deferred: external exam *Routine Extremities Exam Extremities: Absent cyanosis, clubbing or edema *Routine Skin Exam Skin: Present intact and warm; Absent rash *Routine Neurological Exam Neurological: Present alert, oriented X3 and moving all extremities; Absent altered mental status Results Data Completed and Pending Labs on day of discharge: Labs from last 24 hours 09/04/24 09/04/24 09/04/24 11:18 08:54 05:51 WBC RBC Hgb Hct MCV MCH MCHC RDW Plt Count MPV Neut % (Auto) Lymph % (Auto) [place] % (Auto) Eos % (Auto) Baso % (Auto) Neut # (Auto) Lymph # (Auto) [place] # (Auto) Eos # (Auto) Baso # (Auto) Total Counted Neutrophils % (Manual) Lymphocytes % (Manual) Monocytes % (Manual) Eosinophils % (Manual) Platelet Estimate RBC Morphology PT INR Sodium Potassium Chloride Carbon Dioxide Anion Gap BUN Creatinine Estimated Creat Clear Estimated GFR Est GFR ( Amer) Glucose POC Glucose 301 H* 369 H* 246 H Hemoglobin A1c Calcium Magnesium Total Bilirubin AST ALT Alkaline Phosphatase Troponin I NT-Pro-B Natriuret Pep Total Protein Albumin Globulin Albumin/Globulin Ratio Triglycerides Cholesterol LDL Cholesterol Direct VLDL Cholesterol HDL Cholesterol Cholesterol/HDL Ratio TSH Free T4 Index Thyroxine (T4) T3 Uptake SARS-CoV-2 (PCR) Influenza A Untype (PCR) Influenza Type B (PCR) 09/04/24 09/03/24 09/03/24 05:33 20:16 18:25 WBC 16.5 H D RBC 4.01 L Hgb 10.9 L Hct 32.8 L MCV 81.8 MCH 27.2 MCHC 33.2 RDW 16.3 Plt Count 246 MPV 10.1 Neut % (Auto) 83.2 H Lymph % (Auto) 10.3 [place] % (Auto) 5.7 Eos % (Auto) 0.1 Baso % (Auto) 0.2 Neut # (Auto) 13.7 H Lymph # (Auto) 1.7 [place] # (Auto) 0.9 Eos # (Auto) 0.0 Baso # (Auto) 0.0 Total Counted 100 Neutrophils % (Manual) 83 H Lymphocytes % (Manual) 13 Monocytes % (Manual) 3 Eosinophils % (Manual) 1 Platelet Estimate Normal RBC Morphology Normal PT INR Sodium 134 L Potassium 3.8 Chloride 100 Carbon Dioxide 25 Anion Gap 12.8 BUN 25 H D Creatinine 0.70 Estimated Creat Clear 147 Estimated GFR 88 Est GFR ( Amer) 106 Glucose 243 H D POC Glucose 458 H* Hemoglobin A1c Calcium 8.8 Magnesium 2.0 D Total Bilirubin 0.4 AST 30 ALT 34 Alkaline Phosphatase 135 H Troponin I 0.03 NT-Pro-B Natriuret Pep Total Protein 6.8 Albumin 3.8 Globulin 3.0 Albumin/Globulin Ratio 1.3 Triglycerides 82 Cholesterol 201 H LDL Cholesterol Direct 99.45 L VLDL Cholesterol 16 HDL Cholesterol 79 H Cholesterol/HDL Ratio 2.5 TSH Free T4 Index Thyroxine (T4) T3 Uptake SARS-CoV-2 (PCR) Influenza A Untype (PCR) Influenza Type B (PCR) 09/03/24 09/03/24 09/03/24 16:29 15:28 14:31 WBC RBC Hgb Hct MCV MCH MCHC RDW Plt Count MPV Neut % (Auto) Lymph % (Auto) [place] % (Auto) Eos % (Auto) Baso % (Auto) Neut # (Auto) Lymph # (Auto) [place] # (Auto) Eos # (Auto) Baso # (Auto) Total Counted Neutrophils % (Manual) Lymphocytes % (Manual) Monocytes % (Manual) Eosinophils % (Manual) Platelet Estimate RBC Morphology PT INR Sodium Potassium Chloride Carbon Dioxide Anion Gap BUN Creatinine Estimated Creat Clear Estimated GFR Est GFR ( Amer) Glucose POC Glucose 344 H* 346 H* Hemoglobin A1c Calcium Magnesium Total Bilirubin AST ALT Alkaline Phosphatase Troponin I 0.03 NT-Pro-B Natriuret Pep Total Protein Albumin Globulin Albumin/Globulin Ratio Triglycerides Cholesterol LDL Cholesterol Direct VLDL Cholesterol HDL Cholesterol Cholesterol/HDL Ratio TSH Free T4 Index Thyroxine (T4) T3 Uptake SARS-CoV-2 (PCR) Influenza A Untype (PCR) Influenza Type B (PCR) 09/03/24 09/03/24 12:12 11:25 WBC RBC Hgb Hct MCV MCH MCHC RDW Plt Count MPV Neut % (Auto) Lymph % (Auto) [place] % (Auto) Eos % (Auto) Baso % (Auto) Neut # (Auto) Lymph # (Auto) [place] # (Auto) Eos # (Auto) Baso # (Auto) Total Counted Neutrophils % (Manual) Lymphocytes % (Manual) Monocytes % (Manual) Eosinophils % (Manual) Platelet Estimate RBC Morphology PT 10.3 INR 0.91 Sodium 134 L Potassium 3.6 Chloride 98 Carbon Dioxide 30 Anion Gap 9.6 BUN 15 Creatinine 0.70 Estimated Creat Clear 134 Estimated GFR 88 Est GFR ( Amer) 106 Glucose 371 H POC Glucose Hemoglobin A1c 6.8 H Calcium 9.1 Magnesium 1.3 L Total Bilirubin 0.4 AST 31 ALT 28 Alkaline Phosphatase 179 H Troponin I 0.04 H NT-Pro-B Natriuret Pep 322 H Total Protein 6.4 Albumin 3.5 Globulin 2.9 Albumin/Globulin Ratio 1.2 Triglycerides Cholesterol LDL Cholesterol Direct VLDL Cholesterol HDL Cholesterol Cholesterol/HDL Ratio TSH 1.25 Free T4 Index 2.2 L Thyroxine (T4) 8.1 T3 Uptake 27 SARS-CoV-2 (PCR) Not detected Influenza A Untype (PCR) Not detected Influenza Type B (PCR) Not detected DS: Diagnosis Discharge Diagnosis (1) Hypertensive emergency: Status: Acute Code(s): I16.1 - Hypertensive emergency (2) Hypomagnesemia: Status: Acute Code(s): E83.42 - Hypomagnesemia (3) Headache: Status: Acute Code(s): R51.9 - Headache, unspecified (4) Cirrhosis of liver: Status: Acute Code(s): K74.60 - Unspecified cirrhosis of liver Qualifiers: Ascites presence: without ascites Hepatic cirrhosis type: unspecified hepatic cirrhosis Qualified Code(s): K74.60 - Unspecified cirrhosis of liver (5) Iron deficiency anemia: Status: Acute Code(s): D50.9 - Iron deficiency anemia, unspecified Qualifiers: Iron deficiency anemia type: unspecified iron deficiency Qualified Code(s): D50.9 - Iron deficiency anemia, unspecified (6) GERD (gastroesophageal reflux disease): Status: Acute Code(s): K21.9 - Gastro-esophageal reflux disease without esophagitis Qualifiers: Esophagitis presence: esophagitis presence not specified Qualified Code(s): K21.9 - Gastro-esophageal reflux disease without esophagitis (7) Hyperglycemia due to type 2 diabetes mellitus: Status: Acute Code(s): E11.65 - Type 2 diabetes mellitus with hyperglycemia 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 Qualified Code(s): E11.65 - Type 2 diabetes mellitus with hyperglycemia; Z79.4 - nursing home (current) use of insulin (8) Abnormal echocardiogram: Status: Acute Code(s): R93.1 - Abnormal findings on diagnostic imaging of heart and coronary circulation (9) Diastolic dysfunction: Status: Acute Code(s): I51.89 - Other ill-defined heart diseases Meds Home Medications and Allergies Home Medications ?Medication ?Instructions ?Recorded ?Confirmed ?Type flash glucose sensor (FreeStyle #1 ea 04/28/24 09/03/24 History Benedict 2 Sensor kit) insulin glargine 100 unit/mL (3 70 unit SQ DAILY 04/28/24 09/03/24 History mL) subcutaneous pen (Lantus Solostar U-100 Insulin) insulin lispro 100 unit/mL 0 sliding scale dose SQ TID 04/28/24 09/03/24 History subcutaneous pen (Humalog KwikPen (U-100) Insulin) metformin 1,000 mg tablet 1,000 mg PO BID 04/28/24 09/03/24 History pregabalin 300 mg capsule (Lyrica) 300 mg PO BID 04/28/24 09/03/24 History omeprazole 40 mg capsule,delayed 40 mg PO DAILY #30 caps 05/26/24 09/03/24 Rx release ferrous sulfate 325 mg (65 mg 325 mg PO DAILY 07/01/24 09/03/24 History iron) tablet semaglutide 2 mg/dose (8 mg/3 mL) 2 mg SQ WEEKLY 07/01/24 09/04/24 History subcutaneous pen injector (Ozempic) [id number] 1 cap PO TIDP PRN severe headaches 09/04/24 History 50 mg-300 mg-40 mg capsule carvedilol 6.25 mg tablet 6.25 mg PO BID 30 days #60 tabs 09/04/24 Rx doxazosin 4 mg tablet 4 mg PO HS 09/04/24 History duloxetine 60 mg capsule,delayed 60 mg PO BID 09/04/24 History release furosemide 40 mg tablet 40 mg PO DAILY 30 days #30 tabs 09/04/24 Rx irbesartan 150 mg tablet 150 mg PO DAILY 30 days #30 tabs 09/04/24 Rx nabumetone 750 mg tablet 750 mg PO BID 09/04/24 History spironolactone 25 mg tablet 25 mg PO DAILY 30 days #30 tabs 09/04/24 Rx New Prescriptions to Start Prescriptions: carvedilol Jhonny Gibbons furosemide Jhonny Gibbons irbesartan Jhonny Gibbons spironolactone Jhonyn Gibbons Allergies Allergy/AdvReac Type Severity Reaction Status Date / Time hydrocodone Allergy Mild Rash Verified 09/03/24 15:09 Sulfa (Sulfonamide Allergy Mild Difficulty Verified 09/03/24 15:09 Antibiotics) Swallowing Discharge Plan Disposition Patient Disposition: Home, Self-Care Condition: Fair Follow up Plan Follow up with: Hernán Ruiz [Primary Care Provider] - Enter time for follow up Ronaldo Gomes MD [Staff Physician] - 09/16/24 11:15 am Prescriptions/Medication Reconciliation: New furosemide 40 mg Tablet 40 mg PO DAILY 30 Days Qty: 30 0RF spironolactone 25 mg Tablet 25 mg PO DAILY 30 Days Qty: 30 0RF irbesartan 150 mg Tablet 150 mg PO DAILY 30 Days Qty: 30 0RF carvedilol 6.25 mg Tablet 6.25 mg PO BID 30 Days Qty: 60 0RF Continued metformin 1,000 mg tablet 1,000 mg PO BID Patient Comments: TAKE 1 TABLET BY MOUTH TWICE A DAY WITH MEALS pregabalin [Lyrica] 300 mg capsule 300 mg PO BID Patient Comments: TAKE 1 CAPSULE BY MOUTH TWICE A DAY (DME) FreeStyle Benedict 2 Sensor Kit See Rx Instructions .ROUTE .MEDSUPPLY Qty: 1 Patient Comments: USE DIRECTED AND CHANGE EVERY 14 DAYS Rx Instructions: As directed insulin glargine [Lantus Solostar U-100 Insulin] 100 unit/mL (3 mL) insulin pen 70 unit SQ DAILY Patient Comments: INJECT 80 UNITS UNDER THE SKIN DIRECTED EVERY EVENING . MAX 100 UNITS/DAY insulin lispro [Humalog KwikPen Insulin] 100 unit/mL insulin pen 0 sliding scale dose SQ TID Patient Comments: INJECT 20 UNITS UNDER THE SKIN DIRECTED 3 TIMES A DAY . MAX 100 UNITS/DAY Rx Instructions: DOSE PER SLIDING SCALE ferrous sulfate 325 mg (65 mg iron) tablet 325 mg PO DAILY Patient Comments: TAKE 1 TABLET BY MOUTH EVERY DAY WITH BREAKFAST Rx Instructions: TAKE 1 TABLET BY MOUTH EVERY DAY WITH BREAKFAST Ozempic 2 mg/dose (8 mg/3 mL) pen injector 2 mg SQ WEEKLY Patient Comments: INJECT 2 MG UNDER THE SKIN INTO THE APPROPRIATE AREA DIRECTED ONCE WEEKLY (TOO SOON ON INS) nabumetone 750 mg tablet 750 mg PO BID Patient Comments: TAKE 1 TABLET BY MOUTH TWICE A DAY doxazosin 4 mg tablet 4 mg PO HS Patient Comments: TAKE 1 TABLET BY MOUTH EVERYDAY AT BEDTIME duloxetine 60 mg capsule,delayed release(DR/EC) 60 mg PO BID Patient Comments: TAKE 1 CAPSULE BY MOUTH 2 TIMES A DAY AFTER MEALS [id number]-[id number]-clff 50-300-40 mg capsule 1 cap PO TIDP PRN (Reason: severe headaches) Patient Comments: TAKE 1 TABLET BY MOUTH 3 TIMES A DAY NEEDED FOR SEVERE HEADACHE omeprazole 40 mg capsule,delayed release(DR/EC) 40 mg PO DAILY Qty: 30 3RF Rx Instructions: Please take 1 capsule p.o. daily Discontinued furosemide 40 mg tablet 40 mg PO DAILY PRN (Reason: Edema) Patient Comments: TAKE 1 TABLET BY MOUTH DAILY NEEDED (SHORTNESS OF BREATH, WEIGHT GAIN). Rx Instructions: TAKE 1 TABLET BY MOUTH DAILY NEEDED (SHORTNESS OF BREATH, WEIGHT GAIN). clonidine HCl 0.1 mg tablet 0.1 mg PO BIDP PRN (Reason: high blood pressure) losartan 50 mg tablet 50 mg PO DAILY Patient Comments: TAKE 1 TABLET BY MOUTH EVERY DAY metoprolol succinate 50 mg tablet extended release 24 hr 50 mg PO DAILY Patient Comments: TAKE 1 TABLET BY MOUTH EVERY DAY FOR 30 DAYS Problem Reconciliation Problems Reviewed?: Yes Patient Discharge Instructions ACTIVITY: Continue current activity DIET: continue same diet and diabetic diet Print Language: Australian Providers Primary Care Provider: Hernán Ruiz Admit Provider: Jhonny Gibbons Attending Provider: Jhonny Gibbons
--- NOTE | 2024-09-04 13:21 | PC.NURSE ---
PT DISCHARGED WITH CLOTHED IN TWO HOSPITAL GOWNS. PT REPORTED SHE ACCIDENTALLY GOT URINE ON HER CLOTHES LAST NIGHT BUT DIDNT WANT HER TO GO HOME AND GET MORE BECAUSE THEY WERE LEAVING TODAY. THIS NURSE OFFERED TO CHECK THE CLOTHING CLOSET FOR THE PATIENT BUT SHE DENIED AND STATED SHE DIDNT NEED THEM. NO COMPLAINTS AT THIS TIME
--- NOTE | 2024-09-05 10:24 | SW/DCPLANNER ---
Spoke with patient on the phone. Patient stated that she had a little dizzy spell last night. Patient stated that other than the dizzy spell she feels she is doing alright. Patient stated that she is aware of her upcoming appointments. Patient stated that she was not able to get her new medicine but plans on picking them up today. Patient stated that she has no concerns or questions at this time. Colby Morlaes
== END 2024-09-04 13:25 | disposition home or self-care (01) ==
LOC: ER 13:33 → ICU 13:52
PROVIDERS: Nurse Practitioner Family; Physician Assistant; Admitting Provider Internal Medicine Adolescent Medicine; Emergency Provider Emergency Medicine; PCP Family Medicine; Visit Provider Internal Medicine Adolescent Medicine
DX: I16.1 Hypertensive emergency (principal); E11.65 Type 2 diabetes mellitus with hyperglycemia; F17.290 Nicotine dependence, other tobacco product, uncomplicated; E11.40 Type 2 diabetes mellitus with diabetic neuropathy, unspecified; K74.60 Unspecified cirrhosis of liver; D50.9 Iron deficiency anemia, unspecified; E83.42 Hypomagnesemia; K21.9 Gastro-esophageal reflux disease without esophagitis; Z86.16 Personal history of COVID-19; Z79.4 Long term (current) use of insulin; Z79.899 Other long term (current) drug therapy; Z79.85 Long-term (current) use of injectable non-insulin antidiabetic drugs; Z88.2 Allergy status to sulfonamides; Z88.8 Allergy status to other drugs, medicaments and biological substances; E66.01 Morbid (severe) obesity due to excess calories; Z68.39 Body mass index [BMI] 39.0-39.9, adult; R51.9 Headache, unspecified; R79.89 Other specified abnormal findings of blood chemistry
CPT/HCPCS: 36415; 70450; 70496; 70498; 71045; 80053; 80061; 82962; 83036; 83735; 83880; 84436; 84443; 84479; 84484; 85007; 85025; 85027; 85610; 87081; 87636; 93005; 93306; 99291; G0378; J0360; J0780; J1100; J1200; J1650; J1940; J2404; J3475; Q9967

== ENCOUNTER 2024-09-22 19:19 | Emergency (ER) | payer BC, SELFPAY ==
[2024-09-22 19:23] VITALS: BP 171/91; PULSE 113; RESP 18; TEMP 37.6; O2SAT 95; BMI 37.7
[2024-09-22 19:36] LABS: Coronavirus 19, PCR Not Detected (NotDetected); Influenza A, PCR Not Detected (NotDetected); Influenza B, PCR Not Detected (NotDetected)
[2024-09-22 19:45] VITALS: BP 164/86; PULSE 111; RESP 22; O2SAT 97
--- NOTE | 2024-09-22 19:48 | CT_ITS ---
PROCEDURE INFORMATION: Exam: CTA Head With Contrast, Arteriography Exam date and time: 09/22/2024 8:50 PM Age: 54 years old Clinical indication: Other: Dizziness, lightheadedness, headache TECHNIQUE: Imaging protocol: Computed tomographic angiography of the head with contrast. Exam focused on the arteries. 3D rendering (Not supervised by radiologist): MIP and/or 3D reconstructed images were created by the technologist. Radiation optimization: All CT scans at this facility use at least one of these dose optimization techniques: automated exposure control; mA and/or kV adjustment per patient size (includes targeted exams where dose is matched to clinical indication); or iterative reconstruction. Contrast material: ISO 370; Contrast volume: 80 ml; Contrast route: INTRAVENOUS (IV); COMPARISON: CT ANGIO HEAD 09/03/2024 12:50 PM FINDINGS: ANTERIOR CIRCULATION: Right internal carotid artery: Moderate mixed calcific and noncalcified atherosclerotic disease of the right intracranial ICA resulting in moderate stenosis of the ophthalmic segment. Right middle cerebral artery: No occlusion or significant stenosis. No aneurysm. Right anterior cerebral artery: No occlusion or significant stenosis. No aneurysm. Left internal carotid artery: Moderate mixed calcific and noncalcified atherosclerotic disease of the left intracranial ICA resulting in moderate stenosis of the ophthalmic segment. Left middle cerebral artery: No occlusion or significant stenosis. No aneurysm. Left anterior cerebral artery: No occlusion or significant stenosis. No aneurysm. POSTERIOR CIRCULATION: Right vertebral artery: No occlusion or significant stenosis. No aneurysm. Left vertebral artery: No occlusion or significant stenosis. No aneurysm. Basilar artery: No occlusion or significant stenosis. No aneurysm. Right posterior cerebral artery: No occlusion or significant stenosis. No aneurysm. Left posterior cerebral artery: No occlusion or significant stenosis. No aneurysm. Brain: Lobular filling defects in the transverse sinuses compatible with arachnoid granulations Cerebral ventricles: No ventriculomegaly. Bones/joints: Unremarkable. No acute fracture. Soft tissues: Unremarkable. IMPRESSION: 1. 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 2. Moderate mixed calcific and noncalcified atherosclerotic disease of the left intracranial ICA resulting in moderate stenosis of the ophthalmic segment.
--- NOTE | 2024-09-22 19:48 | CT_ITS ---
PROCEDURE INFORMATION: Exam: CTA Neck With Contrast Exam date and time: 09/22/2024 8:50 PM Age: 54 years old Clinical indication: Other: Dizziness, lightheadedness, headache TECHNIQUE: Imaging protocol: Computed tomographic angiography of the neck with contrast. Exam focused on the cervical segments of the vasculature. 3D rendering (Not supervised by radiologist): MIP and/or 3D reconstructed images were created by the technologist. Radiation optimization: All CT scans at this facility use at least one of these dose optimization techniques: automated exposure control; mA and/or kV adjustment per patient size (includes targeted exams where dose is matched to clinical indication); or iterative reconstruction. Contrast material: ISO 370; Contrast volume: 80 ml; Contrast route: INTRAVENOUS (IV); COMPARISON: CT ANGIO NECK 09/03/2024 12:50 PM FINDINGS: Right common carotid artery: Motion of the right common carotid artery at the C3-C4 level obscures evaluation of the lumen. No obvious high-grade stenosis or occlusion observed within the limits of the motion artifact. Right internal carotid artery: No stenosis of the extracranial segment. No dissection or occlusion. Right external carotid artery: No occlusion or stenosis of the origin. Left common carotid artery: Moderate mixed calcific and noncalcified atherosclerotic disease of the left carotid bulb resulting in moderate stenosis. Left internal carotid artery: No stenosis of the extracranial segment. No dissection or occlusion. Left external carotid artery: No occlusion or stenosis of the origin. Right vertebral artery: No stenosis. No dissection or occlusion. Left vertebral artery: No stenosis. No dissection or occlusion. Soft tissues: Normal. No significant soft tissue swelling. Bones/joints: Motion artifacts slightly limits sensitivity and specificity of the examination, particularly at the axial C3-C4 level. ACDF hardware located at levels C5-C6. Lungs: Bilateral pleural-parenchymal scarring of the upper lungs. IMPRESSION: 1. Motion of the right common carotid artery at the C3-C4 level obscures evaluation of the lumen. No obvious high-grade stenosis or occlusion observed within the limits of the motion artifact. 2. 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 3. Motion artifacts slightly limits sensitivity and specificity of the examination, particularly at the axial C3-C4 level. REFERENCES: NASCET CRITERIA. The degree of stenosis in the cervical segment of the internal carotid artery is based on NASCET criteria. Normal is no stenosis. Mild is less than 50% stenosis. Moderate is 50-69% stenosis. Severe is 70% to 99% stenosis. Total occlusion is no detectable patent lumen.
--- NOTE | 2024-09-22 19:48 | CT_ITS ---
PROCEDURE INFORMATION: Exam: CT Head Without Contrast Exam date and time: 09/22/2024 8:48 PM Age: 54 years old Clinical indication: Other: Headache, nausea, vomiting lightheadedness TECHNIQUE: Imaging protocol: Computed tomography of the head without contrast. Radiation optimization: All CT scans at this facility use at least one of these dose optimization techniques: automated exposure control; mA and/or kV adjustment per patient size (includes targeted exams where dose is matched to clinical indication); or iterative reconstruction. COMPARISON: CT ANGIO HEAD 09/03/2024 12:50 PM FINDINGS: Brain: Normal. No hemorrhage. Unremarkable white matter. No mass effect. Cerebral ventricles: No ventriculomegaly. Paranasal sinuses: Visualized sinuses are unremarkable. No fluid levels. Mastoid air cells: Visualized mastoid air cells are well aerated. Bones: Unremarkable. No acute fracture. Soft tissues: Unremarkable. IMPRESSION: No acute intracranial abnormality.
--- NOTE | 2024-09-22 19:55 | ED_ITS ---
<Statement entered by Gopi Kee MD - 09/23/24 00:02> I was consulted by the IVET, and we discussed the complexity of the problems being addressed. I approved the treatment and management plan for this patient's care in the emergency department, thus performing a substantive portion of the medical decision making. Gopi Kee MD Discharge Plan Disposition Patient Disposition: Home, Self-Care Condition: Good Chief Complaint: Headache Prescriptions Prescriptions: No Action metformin 1,000 mg tablet 1,000 mg PO BID Patient Comments: TAKE 1 TABLET BY MOUTH TWICE A DAY WITH MEALS pregabalin [Lyrica] 300 mg capsule 300 mg PO BID Patient Comments: TAKE 1 CAPSULE BY MOUTH TWICE A DAY (DME) FreeStyle Benedict 2 Sensor Kit See Rx Instructions .ROUTE .MEDSUPPLY Qty: 1 Patient Comments: USE DIRECTED AND CHANGE EVERY 14 DAYS Rx Instructions: As directed insulin glargine [Lantus Solostar U-100 Insulin] 100 unit/mL (3 mL) insulin pen 70 unit SQ DAILY Patient Comments: INJECT 80 UNITS UNDER THE SKIN DIRECTED EVERY EVENING . MAX 100 UNITS/DAY insulin lispro [Humalog KwikPen Insulin] 100 unit/mL insulin pen 0 sliding scale dose SQ TID Patient Comments: INJECT 20 UNITS UNDER THE SKIN DIRECTED 3 TIMES A DAY . MAX 100 UNITS/DAY Rx Instructions: DOSE PER SLIDING SCALE ferrous sulfate 325 mg (65 mg iron) tablet 325 mg PO DAILY Patient Comments: TAKE 1 TABLET BY MOUTH EVERY DAY WITH BREAKFAST Rx Instructions: TAKE 1 TABLET BY MOUTH EVERY DAY WITH BREAKFAST Ozempic 2 mg/dose (8 mg/3 mL) pen injector 2 mg SQ WEEKLY Patient Comments: INJECT 2 MG UNDER THE SKIN INTO THE APPROPRIATE AREA DIRECTED ONCE WEEKLY (TOO SOON ON INS) carvedilol 6.25 mg tablet 6.25 mg PO BID Qty: 180 3RF furosemide 40 mg tablet 40 mg PO DAILY Qty: 90 3RF irbesartan 150 mg tablet 150 mg PO DAILY Qty: 90 3RF spironolactone 25 mg tablet 25 mg PO DAILY Qty: 90 3RF nabumetone 750 mg tablet 750 mg PO BID Patient Comments: TAKE 1 TABLET BY MOUTH TWICE A DAY doxazosin 4 mg tablet 4 mg PO HS Patient Comments: TAKE 1 TABLET BY MOUTH EVERYDAY AT BEDTIME duloxetine 60 mg capsule,delayed release(DR/EC) 60 mg PO BID Patient Comments: TAKE 1 CAPSULE BY MOUTH 2 TIMES A DAY AFTER MEALS jezlzwonkc-ybvjyhunwjkeu-cwvt 50-300-40 mg capsule 1 cap PO TIDP PRN (Reason: severe headaches) Patient Comments: TAKE 1 TABLET BY MOUTH 3 TIMES A DAY NEEDED FOR SEVERE HEADACHE omeprazole 40 mg capsule,delayed release(DR/EC) 40 mg PO DAILY Qty: 30 3RF Rx Instructions: Please take 1 capsule p.o. daily Referrals Follow up/Referrals: Hernán Ruiz [Primary Care Provider] - See instructions Activity Restrictions/Add. Instructions Additional Instructions/Restrictions: Follow-up with your primary care provider, could benefit from potential cholesterol therapy and baby aspirin however will follow-up with PCP for this. Continue to take all your other medications as prescribed. Return to the emerged part with any worsening dizziness headache chest pain shortness of breath. Clinical Impressions Clinical Impression: Headache Instructions Patient Instructions: DI for Headache, DI for Migraine Print Language Print Language: Syriac Discharge ED Provider: Gopi Kee General Adult HPI General Chief complaint: Headache Stated complaint: BAIRD, SOA, dizzy Time Seen by Provider: 09/22/24 19:34 Mode of Arrival: Ambulatory Source of Information: Patient and Spouse Description of Symptoms (Recalled from ER Triage Doc. by RN): Pt presents for evaluation of a headache x 2 days. Pt states the room has been spinning , has a hx of vertigo. Pt has had nausea and chills. History of Present Illness HPI narrative: 54-year-old female presents to the emergency department accompanied by her for a greater than 24-hour history of headache, nausea, 1 episode of vomiting, lightheadedness dizziness, shortness of air and heart palpitations. Patient also endorses some visual disturbance blurry vision , has data deficient history of migrainous type headaches, has never yet seen a neurologist for this. Does not get them frequently. Denies any neck pain, denies any fever chills, chest pain, denies any abdominal pain, denies any constipation diarrhea, no urinary type symptomatology. Patient is a non-smoker, denies any alcohol or drug use, past medical history consistent with type 2 diabetes, iron deficiency anemia, hypertension, GERD, cirrhosis of the liver, patient was recently admitted to the hospitalist service at the beginning of August 2024 for hypertensive emergency/urgency, this was a new diagnosis of hypertension. She been taking her medication as prescribed. She had been utilizing Tylenol with little to no relief of symptomatology. No numbness tingling, no upper or lower extremity weakness, does endorse some dizziness/lightheadedness , initial triage vitals noted for tachycardia, blood pressure unremarkable, other vital signs stable. Onset (ago): day(s) Related Data Home Medications ?Medication ?Instructions ?Recorded ?Confirmed flash glucose sensor (FreeStyle #1 ea 04/28/24 09/16/24 Benedict 2 Sensor kit) insulin glargine 100 unit/mL (3 70 unit SQ DAILY 04/28/24 09/16/24 mL) subcutaneous pen (Lantus Solostar U-100 Insulin) insulin lispro 100 unit/mL 0 sliding scale dose SQ TID 04/28/24 09/16/24 subcutaneous pen (Humalog KwikPen (U-100) Insulin) metformin 1,000 mg tablet 1,000 mg PO BID 04/28/24 09/16/24 pregabalin 300 mg capsule (Lyrica) 300 mg PO BID 04/28/24 09/16/24 ferrous sulfate 325 mg (65 mg 325 mg PO DAILY 07/01/24 09/16/24 iron) tablet semaglutide 2 mg/dose (8 mg/3 mL) 2 mg SQ WEEKLY 07/01/24 09/16/24 subcutaneous pen injector (Ozempic) ftonpgyjax-cbxrnduovscfx-ixgisesu 1 cap PO TIDP PRN severe headaches 09/04/24 09/16/24 50 mg-300 mg-40 mg capsule doxazosin 4 mg tablet 4 mg PO HS 09/04/24 09/16/24 duloxetine 60 mg capsule,delayed 60 mg PO BID 09/04/24 09/16/24 release nabumetone 750 mg tablet 750 mg PO BID 09/04/24 09/16/24 Previous Rx's ?Medication ?Instructions ?Recorded omeprazole 40 mg capsule,delayed 40 mg PO DAILY #30 caps 05/26/24 release carvedilol 6.25 mg tablet 6.25 mg PO BID #180 tabs 09/16/24 furosemide 40 mg tablet 40 mg PO DAILY #90 tabs 09/16/24 irbesartan 150 mg tablet 150 mg PO DAILY #90 tabs 09/16/24 spironolactone 25 mg tablet 25 mg PO DAILY #90 tabs 09/16/24 Allergies Allergy/AdvReac Type Severity Reaction Status Date / Time hydrocodone Allergy Mild Rash Verified 09/16/24 11:33 Sulfa (Sulfonamide Allergy Mild Difficulty Verified 09/16/24 11:33 Antibiotics) Swallowing PFSH PFSH Disclaimer: The information contained in this section may have been updated after the patient was seen, as this information can be updated by other users. Medical History (Updated 09/22/24 @ 21:57 by YAN Lyman) Sinus tachycardia Chest pain Abnormal electrocardiogram [ECG] [EKG] Elevated troponin I level Hyperglycemia due to type 2 diabetes mellitus Elevated brain natriuretic peptide (BNP) level Hypomagnesemia Hypertensive emergency Hypertension Cirrhosis of liver Iron deficiency anemia Schatzki's ring GERD (gastroesophageal reflux disease) SOB (shortness of breath) on exertion Diastolic dysfunction Abnormal echocardiogram History of fibromyalgia History of hypertension Rheumatoid arthritis Diabetes Amputation toe History of COVID-19 History of gastroesophageal reflux (GERD) Surgical History History of esophagogastroduodenoscopy (EGD) History of colonoscopy History of amputation of toe History of ankle surgery History of appendectomy History of hysterectomy History of cholecystectomy Family History Other Cancer Colon cancer Diabetes Enlarged heart Heart disease Social History Smoking Status: Unknown if ever smoked alcohol intake: never substance use type: denies use current occupational status: unemployed Travel in the last 8 weeks: None caffeine: Yes Have you lived/traveled outside [place] in past 30 days?: No Contact w/someone who lives/traveled outside [place] past 30 days?: No Exposure to someone with infectious disease in past 14 days?: No Do you have a fever (greater than 100.4 F or 38 C)?: No Have you tested positive for COVID-19: No Exposed to someone with COVID-19 in past 14 days?: No Do you have a sore throat?: No Do you have a cough?: No Do you have any weakness?: No Do you have any diarrhea?: No Are you experiencing any unusual bleeding?: No Do you have any muscle aches/pain?: No Do you have any abdominal pain?: No Are you experiencing loss of taste or smell?: No Other Medical History Have you received the Flu Vaccine for this season: No Have you received the Pneumonia Vaccine: No ROS Obtained: Yes All systems reviewed & no additional complaints except as documented Physical Exam General General appearance: alert and in no apparent distress Head Head exam: atraumatic and normocephalic Eye Eye exam: Present PERRL and EOMI ENT ENT exam: Present mucous membranes moist Neck Neck exam: Present normal inspection Chest Chest inspection: Present normal inspection and symmetric chest wall rise Respiratory Respiratory exam: Present normal lung sounds bilaterally; Absent respiratory distress Cardiovascular Cardiovascular exam: Present regular rate and normal rhythm Abdominal Exam Abdominal exam: Present soft; Absent tenderness Extremities Exam Extremities exam: Present normal inspection Neurological Exam Neurological exam: Present alert, oriented X3 and other (GCS of 15, 5 out of 5 strength in bilateral lower and upper extremities, moves extremities to command, no gross sensation deficit, no dysarthria) Psychiatric Psychiatric exam: Present normal affect Skin Skin exam: Present warm and dry Medical Decision Making Medical Records Medical records reviewed: Yes I reviewed the patient's medical records. Screening: Per USPSTF and CDC recommendations, given the prevalence of disease in our region, it is our hospital?s policy to screen for HIV and viral Hepatitis for all patients aged 18 and over and those with ongoing risk factors. Marcus Inquiry Pt receiving controlled substance: No Marcus was queried for this patient: No Vital Signs: 09/22/24 19:23 09/22/24 19:45 09/22/24 20:00 Temperature 99.7 F H Temperature Source Oral Pulse Rate 111 H 112 H Pulse Rate [Right] 113 H Respiratory Rate 18 22 25 H Blood Pressure 164/86 H 175/84 H Blood Pressure [Right Arm] 171/91 H Blood Pressure Mean [Right Arm] 117 Blood Pressure Source [Right Arm] Automatic Cuff Blood Pressure Position [Right Arm] Sitting 02 Sat by Pulse Oximetry 95 97 92 L Oxygen Delivery Method Room Air 09/22/24 20:30 09/22/24 21:00 Temperature Temperature Source Pulse Rate 106 H 109 H Pulse Rate [Right] Respiratory Rate 22 21 Blood Pressure 177/99 H 156/80 H Blood Pressure [Right Arm] Blood Pressure Mean [Right Arm] Blood Pressure Source [Right Arm] Blood Pressure Position [Right Arm] 02 Sat by Pulse Oximetry 93 L 91 L Oxygen Delivery Method Lab Data Lab Results 09/22/24 19:26: SARS-CoV-2 (PCR) Not detected, Influenza A Untype (PCR) Not detected, Influenza Type B (PCR) Not detected 09/22/24 19:52: WBC 13.2 H, RBC 3.47 L, Hgb 9.6 L, Hct 29.3 L, MCV 84.4, MCH 27.7, MCHC 32.8, RDW 15.1, Plt Count 157, MPV 10.0, Neut % (Auto) 92.0 H, Lymph % (Auto) 3.4 L, [place] % (Auto) 3.3, Eos % (Auto) 0.4, Baso % (Auto) 0.4, Neut # (Auto) 12.1 H, Lymph # (Auto) 0.5 L, [place] # (Auto) 0.4, Eos # (Auto) 0.1, Baso # (Auto) 0.1, Sodium 130 L, Potassium 4.1, Chloride 101, Carbon Dioxide 25, Anion Gap 8.1, BUN 18 H, Creatinine 0.70, Estimated Creat Clear 142, Estimated GFR 88, Est GFR ( Amer) 106, Glucose 240 H, Calcium 8.6, Magnesium 1.0 L, Total Bilirubin 1.0, AST 28, ALT 24, Alkaline Phosphatase 113, Troponin I 0.02, N T-Pro-B Natriuret Pep 412 H, Total Protein 6.5, Albumin 3.6, Globulin 2.9, Albumin/Globulin Ratio 1.2 09/22/24 19:52 09/22/24 19:52 Orders (Tests/Meds): ED MEDICATIONS Generic Name Dose Route Start Last Admin Trade Name Freq PRN Reason Stop Dose Admin Magnesium Sulfate 2 gm in 50 mls @ 50 mls/hr 09/22/24 21:01 09/22/24 21:11 Magnesium Sulfate 2gm/50ml Premix IV 09/22/24 22:00 50 mls/hr ONCE ONE Administration Discontinued Medications Generic Name Dose Route Start Last Admin Trade Name Freq PRN Reason Stop Dose Admin Acetaminophen 1,000 mg 09/22/24 19:54 09/22/24 20:01 Acetaminophen 1,000mg/100ml Vial IV 09/22/24 19:55 1,000 mg ONCE ONE Administration Diphenhydramine HCl 25 mg 09/22/24 19:54 09/22/24 20:01 Diphenhydramine 50mg/Ml Vial IV 09/22/24 19:55 25 mg ONCE ONE Administration Iopamidol 80 ml 09/22/24 20:52 09/22/24 20:55 Iopamidol-370 (76%);100ml Bottle IV 09/22/24 20:53 80 ml ONCE ONE Administration Prochlorperazine Edisylate 5 mg 09/22/24 19:54 09/22/24 20:02 Prochlorperazine 10mg/2ml Vial IV 09/22/24 19:55 5 mg ONCE ONE Administration Sodium Chloride 50 ml 09/22/24 20:52 09/22/24 20:55 0.9 % Sodium Chloride 50 Ml Vial IV 09/22/24 20:53 50 ml ONCE ONE Administration Sodium Chloride 10 ml 09/22/24 20:52 09/22/24 20:55 Sodium Chloride 0.9% 10ml Syr (Rad Only) IV 09/22/24 20:53 10 ml ONCE ONE Administration ORDERS Category Date Time Status CT angio head Stat Cat Scan 09/22/24 19:[address] angio neck Stat Cat Scan 09/22/24 19:[address] head/brain wo con Stat Cat Scan 09/22/24 19:48 Completed Complete Blood Count Auto Diff Stat Lab 09/22/24 19:52 Results Comprehensive Metabolic Panel Stat Lab 09/22/24 19:52 Completed Magnesium Stat Lab 09/22/24 19:52 Completed NT Pro Brain Natriuretic Pep. Stat Lab 09/22/24 19:52 Completed Rapid PCR Covid and Flu A/B Stat Lab 09/22/24 19:26 Completed Troponin I Q3H Lab 09/22/24 23:00 Ordered Troponin I Q3H Lab 09/23/24 02:00 Ordered Troponin I Stat Lab 09/22/24 19:52 Completed Medical Decision Narrative: 54-year-old female presents emerged part with headache, nausea, vomiting, lightheadedness, differential diagnose, limited to, intracranial hemorrhage, acute SAH, hypertensive emergency, cardiac arrhythmia, electrolyte disturbance, migraine with aura, migraine without aura, tension headache, cluster headache, ophthalmologic migraine. Discussed patient case with attending Dr. Kee Will obtain basic laboratory studies, magnesium level proBNP, rapid PCR COVID and flu, troponin, CT head without contrast, CTA head and neck with and without contrast, will give IV Tylenol 1000 mg, 25 mg Benadryl 5 mg Compazine for migrainous type cocktail. CBC notable for mild leukocytosis 13.2, hemoglobin is 9.6, hematocrit 29.3, in line with the patient's history of iron-deficiency anemia. CMP notable for mild hyponatremia 130, hypomagnesia 1, proBNP is mildly elevated at 412, troponin within normal limits. Will give 2 g IV magnesium for replacement therapy. COVID 19 negative influenza A and B are negative I reviewed the patient CT head without contrast on the corresponding radiologic report, no acute intracranial abnormality. I reviewed the patient's CTA head with and without contrast on the corresponding radiologic report, moderate mixed calcific and noncalcified atherosclerotic disease of the right intracranial ICA, resulting in moderate stenosis of the ophthalmic segment, moderate mixed calcific and noncalcified atherosclerotic disease of the left intracranial ICA, resulting in moderate stenosis in the ophthalmic segment. Reviewed the patient's CTA neck with and without contrast on the corresponding radiologic report, motion of the right common carotid artery at the level of C3- C4 obscures evaluation of the lumen, no obvious high-grade stenosis or occlusion, moderate mixed calcific and noncalcified atherosclerotic disease of the left carotid bulb resulting in moderate stenosis, motion artifact slightly limits sensitivity and specificity of the examination particular at the axial C3-C4 level. Discussed all results with the patient family bedside. Reexamination of the patient at approximately 9:50 PM, patient's headache is improved, patient is somewhat drowsy after Benadryl ministration, but she states her headache and dizziness have improved, denies any shortness of air or chest pain, patient does have longstanding history of sinus tachycardia, still has some mild tachycardia upon discharge, otherwise hemodynamically stable, SpO2 within normal limits. Recommend follow-up with PCP, could benefit from cholesterol therapy versus baby aspirin, due to findings on CTA. Patient family voiced understand agreement concerning plan/discharge plan. Strict ED return precaution given. Critical Care Critical Care Time Critical Care Time: No
[2024-09-22 20:00] VITALS: BP 175/84; PULSE 112; RESP 25; O2SAT 92
[2024-09-22] MEDS: ACETAMINOPHEN 1,000MG/100ML VIAL 1000 MG IV (20:01)
[2024-09-22] MEDS: diphenhydrAMINE 50MG/ML VIAL 25 MG IV (20:01)
[2024-09-22] MEDS: PROCHLORPERAZINE 10MG/2ML VIAL 5 MG IV (20:02)
[2024-09-22 20:03] LABS: Basophils # 0.1 K/mm3 (0-0.2); Basophils % 0.4 % (0.1-2.0); Eosinophils # 0.1 K/mm3 (0.0-0.4); Eosinophils % 0.4 % (0.1-12.0); Hematocrit 29.3 % (37.0-47.0); Hemoglobin 9.6 g/dL (12.2-16.2); Lymphocytes # 0.5 K/mm3 (0.7-4.5); Lymphocytes % 3.4 % (10-50); Mean Corpuscular HGB Conc 32.8 g/dL (31.8-35.4); Mean Corpuscular Hemoglobin 27.7 pg (27.0-31.2); Mean Corpuscular Volume 84.4 fl (81-99); Monocytes # 0.4 K/mm3 (0.1-1.0); Monocytes % 3.3 % (1.7-9.3); Neutrophils # 12.1 K/mm3 (1.8-7.8); Platelet Count 157 K/mm3 (142-424); Red Blood Count 3.47 M/mm3 (4.20-5.40); Red Cell Distribution Width 15.1 % (11.5-17.5); White Blood Count 13.2 K/mm3 (4.8-10.8)
--- NOTE | 2024-09-22 20:17 | ECG_ITS ---
APPROVED REPORT Exam: Resting ECG HR:105 bpm ECG Measurements Heart Rate 105 AXES GA 146 P 62 QRSd 76 QRS -17 QT 341 T 58 QTc 402 Conclusion SINUS TACHYCARDIA VOLTAGE CRITERIA FOR LVH [MEETS CRITERIA IN ONE OF: R(aVL), S(V1), R(V5), R(V5/V6)+S(V1)] MODERATE ST DEPRESSION [0.05+ mV ST DEPRESSION] ABNORMAL ECG Significant wandering of baseline EKG lead Electronically signed by : MARY ROJAS, 09/23/2024 00:17:36
[2024-09-22 20:27] LABS: Albumin Level 3.6 g/dl (3.5-5.0); Chloride 101 mmol/L (98-107); Potassium 4.1 mmoL/L (3.5-5.1); Sodium 130 mmol/L (136-145)
[2024-09-22 20:29] LABS: Blood Urea Nitrogen 18 mg/dl (7-17); Creatinine Clearance Estimated 142 mL/min (50-200); Estimated Glomerular Filt Rate 88 ml/min (>60); GFR (African American) 106 ML/MIN (>60); MANUAL DIFFERENTIAL MANUAL DIFFERENTIAL (MANUAL DIFF)
[2024-09-22 20:30] VITALS: BP 177/99; PULSE 106; RESP 22; O2SAT 93
[2024-09-22 20:30] LABS: Alanine Aminotransferase 24 U/L (12-78); Albumin/Globulin Ratio 1.2 (1.1-1.8); Alkaline Phosphatase 113 U/L (38-126); Anion Gap 8.1 mEq/L (5-15); Aspartate Amino Transferase 28 U/L (14-36); Calcium 8.6 mg/dl (8.4-10.2); Carbon Dioxide 25 mmol/L (22.0-30.0); Globulin 2.9 g/dL (1.3-3.2); Glucose 240 mg/dl (74-100); Total Protein,Serum 6.5 g/dl (6.3-8.2)
[2024-09-22 20:39] LABS: NT Pro Brain Natriuretic Pep. 412 pg/mL (0-125)
[2024-09-22 20:42] LABS: Troponin I 0.02 ng/ml (0.00-0.034)
[2024-09-22] MEDS: IOPAMIDOL-370 (76%);100ML BOTTLE 80 ML IV (20:55)
[2024-09-22] MEDS: SODIUM CHLORIDE 0.9% 10ML SYR (RAD ONLY) 10 ML IV (20:55)
[2024-09-22] MEDS: 0.9 % SODIUM CHLORIDE 50 ML VIAL IV (20:55)
--- NOTE | 2024-09-22 20:55 | PC.NURSE ---
lab calls to report magnesium of 1.0. provider aware
[2024-09-22 21:00] VITALS: BP 156/80; PULSE 109; RESP 21; O2SAT 91
[2024-09-22] MEDS: MAGNESIUM SULFATE IN WATER 2 GM/50 ML PIGGYBACK IV (21:11)
[2024-09-22 22:01] VITALS: BP 127/69; PULSE 105; RESP 20; TEMP 36.8; O2SAT 97
[2024-09-22 22:04] LABS: Lymphocytes % 6 % (10-50); Monocytes % 3 % (2-9); Neutrophils % 91 % (42-76); Total Cells Counted 100
[2024-09-22 22:05] LABS: Platelet Estimate Normal; RBC Morphology Normal
== END 2024-09-22 22:06 | disposition home or self-care (01) ==
PROVIDERS: Physician Assistant; Emergency Provider Emergency Medicine; PCP Family Medicine
DX: R51.9 Headache, unspecified (principal); R06.02 Shortness of breath; R42 Dizziness and giddiness; R11.2 Nausea with vomiting, unspecified; R68.83 Chills (without fever); R00.2 Palpitations; H53.8 Other visual disturbances
CPT/HCPCS: 70450; 70496; 70498; 80053; 83735; 83880; 84484; 85007; 85025; 85027; 87636; 93005; 96365; 96374; 96375; 99285; J0131; J0780; J1200; J2405; J3475; Q9967